=== PATIENT | male | born 1995 | race Hispanic/Latino ===

== ENCOUNTER 2019-09-10 20:46 | Emergency (ER) | payer OTHER ==
[2019-09-10] MEDS ORDERED: IPRATROPIUM BROM 0.5MG/2.5ML ONE (22:47)
[2019-09-10] MEDS ORDERED: BENZONATATE 100 MG CAP PO ONE (22:47)
[2019-09-10] MEDS ORDERED: ALBUTEROL 2.5 MG/3 ML NEB SOL ONE (22:47)
[2019-09-10] MEDS ORDERED: NA CHLORIDE 0.9% 1,000 ML ONE (23:14)
[2019-09-10 23:44] LABS: Absolute Lymphocytes (CBC) 4.3 K/uL (0.7-4.9); Basophils % 0.8 % (0-1.3); Hematocrit 40.9 % (39.6-49.0); Lymphocytes % 24.4 % (15.3-44.8); MPV 8.1 fL (7.6-11.3); RBC Red Blood Cell Count 4.69 M/uL (4.33-5.43)
--- NOTE | 2019-09-11 02:20 | ER ---
Nurse's Notes [facility] Name: Arpan Aguila Jr Age: 24 yrs Sex: Male : 1995 Arrival Date: 09/10/2019 Time: 21:00 Bed 16 Private MD: Diagnosis: Pneumonia due to other specified bacteria-left lung Presentation: 09/10 21:08 Presenting complaint: Patient states: Cough and SOB X2 weeks. pt finished predinsone ak1 and unknown antibiotics. pt started lisinopril a month [employer]. Transition of care: patient was not received from another setting of care. Onset of symptoms is unknown. Risk Assessment: Do you want to hurt yourself or someone else? Patient reports no desire to harm self or others. Initial Sepsis Screen: Does the patient meet any 2 criteria? No. Patient's initial sepsis screen is negative. Does the patient have a suspected source of infection? No. Patient's initial sepsis screen is negative. Care prior to arrival: None. 21:08 Method Of Arrival: Ambulatory ak1 21:08 Acuity: KVNG 3 ak1 Triage Assessment: 21:13 General: Appears uncomfortable. ak1 21:37 Respiratory: Reports shortness of breath cough that is Onset: The symptoms/episode wh began/occurred suddenly, the patient has mild shortness of breath. Historical: - Allergies: 21:13 No Known Allergies; ak1 - Home Meds: 21:13 lisinopril 10 mg Oral tab 1 tab once daily [Active]; ak1 - PMHx: 21:13 Hypertension; ak1 - PSHx: 21:13 None; ak1 - Immunization history:: Flu vaccine is up to date. - Social history:: Smoking status: Patient/guardian denies using tobacco. - Ebola Screening: : No symptoms or risks identified at this time. Screenin:36 Abuse screen: Denies threats or abuse. Denies injuries from another. Nutritional wh screening: No deficits noted. Tuberculosis screening: No symptoms or risk factors identified. Fall Risk None identified. Assessment: 21:35 General: Appears in no apparent distress. Behavior is calm, cooperative, appropriate wh for age. Pain: Denies pain. Neuro: Level of Consciousness is awake, alert, obeys commands. Cardiovascular: Heart tones S1 S2 Rhythm is regular. Respiratory: Airway is patent Respiratory effort is even, unlabored, Breath sounds are clear bilaterally. GI: Abdomen is round non-distended. : No signs and/or symptoms were reported regarding the genitourinary system. EENT: No signs and/or symptoms were reported regarding the EENT system. Derm: Skin is intact, is healthy with good turgor, Skin is pink, warm \T\ dry. normal. Musculoskeletal: Circulation, motion, and sensation intact. 22:00 Reassessment: Patient appears in no apparent distress at this time. No changes from fu previously documented assessment. Patient and/or family updated on plan of care and expected duration. Pain level reassessed. Patient is alert, oriented x 3, equal unlabored respirations, skin warm/dry/pink. Patient denies pain at this time. 23:00 Reassessment: Patient appears in no apparent distress at this time. No changes from fu previously documented assessment. Patient and/or family updated on plan of care and expected duration. Pain level reassessed. Patient is alert, oriented x 3, equal unlabored respirations, skin warm/dry/pink. Patient denies pain at this time. 09/11 00:35 Reassessment: Patient appears in no apparent distress at this time. No changes from fu previously documented assessment. Patient and/or family updated on plan of care and expected duration. Pain level reassessed. Patient is alert, oriented x 3, equal unlabored respirations, skin warm/dry/pink. Patient denies pain at this time. 01:08 Reassessment: Patient appears in no apparent distress at this time. No changes from fu previously documented assessment. Patient and/or family updated on plan of care and expected duration. Pain level reassessed. Patient is alert, oriented x 3, equal unlabored respirations, skin warm/dry/pink. Patient denies pain at this time. Vital Signs: 09/10 21:13 BP 174 / 117; Pulse 110; Resp 20; Temp 99.7; Pulse Ox 98% on R/A; Weight 158.76 kg (R); ak1 Height 5 ft. 7 in. (170.18 cm) (R); Pain 2/10; 21:36 BP 149 / 95; Pulse 108; Resp 18; Pulse Ox 96% on R/A; wh 22:45 BP 118 / 65; Pulse 98; Resp 18; Pulse Ox 96% ; Pain 0/10; fu 10/22 00:45 BP 138 / 78; Pulse 91; Resp 18; Pulse Ox 96% on R/A; Pain 0/10; fu 09/10 21:13 Body Mass Index 54.82 (158.76 kg, 170.18 cm) ak1 ED Course: 09/10 21:00 Patient arrived in ED. es 21:11 Triage completed. ak1 21:13 Arm band placed on Patient placed in an exam room. ak1 21:14 Hector Neal is Primary Nurse. wh 21:37 Patient has correct armband on for positive identification. Bed in low position. Call wh light in reach. Side rails up X 1. Pulse ox on. NIBP on. 21:41 Ben Cantu PA is PHCP. cp 21:41 Ben Rae MD is Attending Physician. cp 21:47 Primary Nurse role handed off by Hector Neal fu 21:47 Attila Bain, JOSEPHINE is Primary Nurse. fu 22:23 XRAY Chest Pa And Lat (2 Views) In Process Unspecified. EDMS 23:30 Inserted saline lock: 20 gauge in right antecubital area, using aseptic technique. oe Blood collected. 23:58 Inserted saline lock: 20 gauge in right antecubital area, using aseptic technique. oe 09/11 02:00 No provider procedures requiring assistance completed. fu 02:50 IV discontinued, bleeding controlled, Pressure dressing applied. fu Administered Medications: 09/10 22:54 Drug: AtroVENT Aerosol 0.5 mg Route: Inhalation; fu 09/11 00:00 Follow up: Response: No adverse reaction fu 09/10 22:54 Drug: Tessalon Perle 200 mg Route: PO; fu 09/11 00:00 Follow up: Response: No adverse reaction fu 09/10 22:55 Drug: Albuterol 2.5 mg Route: Inhalation; fu 09/11 00:00 Follow up: Response: No adverse reaction fu 09/10 23:18 Drug: NS 0.9% 1000 ml Route: IV; Rate: 1 bolus; Site: right antecubital; fu 09/11 02:44 Drug: LevaQUIN 750 mg Route: PO; fu Outcome: 02:19 Discharge ordered by . cp 02:54 Patient left the ED. fu 02:54 Discharged to home ambulatory. fu 02:54 Condition: improved 02:54 Discharge instructions given to patient, Instructed on discharge instructions, Demonstrated understanding of instructions, Prescriptions given X 3. Signatures: Dispatcher [employer] Mary Ann Huizar Amber RN RN ak1 Ben Cantu PA PA cp Espinosa, Orlando oe Habalo, Winsy wh Umadhay, Felix, RN RN fu Corrections: (The following items were deleted from the chart) 00:02 09/10 23:58 Inserted saline lock: 20 gauge in right antecubital area, using aseptic oe technique. oe
--- NOTE | 2019-09-11 02:20 | EDPHYS ---
Physician Documentation [facility] Name: Arpan Aguila Jr Age: 24 yrs Sex: Male : 1995 Arrival Date: 09/10/2019 Time: 21:00 Bed 16 Private MD: ED Physician Ben Rae HPI: 09/10 22:10 This 24 yrs old Male presents to ER via Ambulatory with complaints of Cough, cp Breathing Difficulty, Fever. 22:10 The patient or guardian reports cough, described as moderate. Onset: The cp symptoms/episode began/occurred 3 week(s) ago. Severity of symptoms: in the emergency department the symptoms are unchanged, despite home interventions. Associated signs and symptoms: Pertinent positives: fever, Pertinent negatives: diarrhea, vomiting. Patient reports recently finishing oral antibiotic and prednisone for cough. Was started on oral lisinopril for high blood pressure about 1 month ago prior to cough starting. Historical: - Allergies: 21:13 No Known Allergies; ak1 - Home Meds: 21:13 lisinopril 10 mg Oral tab 1 tab once daily [Active]; ak1 - PMHx: 21:13 Hypertension; ak1 - PSHx: 21:13 None; ak1 - Immunization history:: Flu vaccine is up to date. - Social history:: Smoking status: Patient/guardian denies using tobacco. - Ebola Screening: : No symptoms or risks identified at this time. ROS: 22:20 Constitutional: Negative for body aches, fever, poor PO intake. cp 22:20 Eyes: Negative for injury, pain, redness, and discharge. cp 22:20 ENT: Negative for drainage from ear(s), ear pain, sore throat, difficulty swallowing, difficulty handling secretions. 22:20 Cardiovascular: Positive for chest pain, with cough, Negative for edema, palpitations. 22:20 Respiratory: Positive for cough, "sounds productive", shortness of breath, Negative for wheezing. 22:20 Abdomen/GI: Negative for abdominal pain, nausea, vomiting, and diarrhea. 22:20 Back: Negative for radiated pain. 22:20 Skin: Negative for cellulitis, rash. 22:20 Neuro: Negative for altered mental status, headache, weakness. 22:20 All other systems are negative. Exam: 22:25 Constitutional: The patient appears in no acute distress, alert, awake, cp non-diaphoretic, non-toxic, well developed, well nourished, obese. 22:25 Head/Face: Normocephalic, atraumatic. cp 22:25 Eyes: Periorbital structures: appear normal, Conjunctiva: normal, no exudate, no injection, Sclera: no appreciated abnormality, Lids and lashes: appear normal, bilaterally. 22:25 ENT: External ear(s): are unremarkable, Ear canal(s): are normal, clear, TM's: bulging, is not appreciated, bilaterally, dullness, bilaterally, erythema, is not appreciated, bilaterally, Nose: is normal, Mouth: Lips: moist, Oral mucosa: pink and intact, moist, Posterior pharynx: is normal, airway is patent, no erythema, no exudate. 22:25 Neck: ROM/movement: is normal, is supple, without pain, no range of motions limitations, no meningismus, no nuchal rigidity, Lymph nodes: no appreciated lymphadenopathy. 22:25 Chest/axilla: Inspection: normal, Palpation: is normal, no crepitus, no tenderness. 22:25 Cardiovascular: Rate: tachycardic, Rhythm: regular. 22:25 Respiratory: the patient does not display signs of respiratory distress, Respirations: labored breathing, is not present, intercostal retractions, are absent, splinting, is not noted, tachypnea, is not appreciated, Breath sounds: decreased breath sounds, are not appreciated, rhonchi, that are mild, are heard in the left posterior upper lobe and left posterior lower lobe, stridor, is not appreciated, wheezing: is not appreciated. 22:25 Abdomen/GI: Inspection: obese Bowel sounds: active, all quadrants, Palpation: abdomen is soft and non-tender, in all quadrants. 22:25 Skin: no rash present. 22:25 Neuro: Orientation: to person, place \\T\\ time. Mentation: is normal, Cerebellar function: is grossly normal, Motor: moves all fours, strength is normal, Sensation: is normal. 22:38 ECG was reviewed by the Attending Physician. cp Vital Signs: 21:13 BP 174 / 117; Pulse 110; Resp 20; Temp 99.7; Pulse Ox 98% on R/A; Weight 158.76 kg (R); ak1 Height 5 ft. 7 in. (170.18 cm) (R); Pain 2/10; 21:36 BP 149 / 95; Pulse 108; Resp 18; Pulse Ox 96% on R/A; wh 22:45 BP 118 / 65; Pulse 98; Resp 18; Pulse Ox 96% ; Pain 0/10; fu 09/11 00:45 BP 138 / 78; Pulse 91; Resp 18; Pulse Ox 96% on R/A; Pain 0/10; fu 09/10 21:13 Body Mass Index 54.82 (158.76 kg, 170.18 cm) ak1 MDM: 09/10 21:50 Patient medically screened. cp 23:00 Differential Diagnosis: Bronchitis Influenza Otitis Media Viral Syndrome Pneumonia cp Other pooja inhibitor induced cough. 09/11 02:18 Data reviewed: vital signs, nurses notes. cp 02:18 Test interpretation: by ED physician or midlevel provider: ECG, plain radiologic cp studies, chest xray shows left lung pneumonia. Counseling: I had a detailed discussion with the patient and/or guardian regarding: the historical points, exam findings, and any diagnostic results supporting the discharge/admit diagnosis, lab results, radiology results, the need for outpatient follow up, a family practitioner, to return to the emergency department if symptoms worsen or persist or if there are any questions or concerns that arise at home. Response to treatment: the patient's symptoms have markedly improved after treatment, and as a result, I will discharge patient. ED course: VSS. Cough improved after treatment. Patient to start oral Levaquin and will discharge to home for continued monitoring. 09/10 21:13 Order name: Flu; Complete Time: 00:23 ak1 09/10 22:47 Order name: Procalcitonin; Complete Time: 01:11 cp 09/10 22:47 Order name: Lactate; Complete Time: 00:23 cp 09/10 22:47 Order name: CBC with Diff; Complete Time: 00:23 cp 09/11 00:24 Interpretation: Normal except: WBC 17.8; PLT 429; NEUT A 12.1. cp 09/10 22:47 Order name: BMP; Complete Time: 00:23 cp 09/11 00:24 Interpretation: Normal except: GFR 86. cp 09/10 22:01 Order name: XRAY Chest Pa And Lat (2 Views); Complete Time: 22:48 cp 09/11 22:49 Interpretation: Report reviewed. cp 09/10 22:01 Order name: EKG; Complete Time: 22:01 cp 09/10 22:59 Order name: BNP; Complete Time: 02:16 cp 09/10 22:01 Order name: EKG - Nurse/Tech; Complete Time: 01:05 cp 09/10 22:47 Order name: IV; Complete Time: 01:00 cp EC/21 22:38 Rate is 102 beats/min. Rhythm is regular. [place] interval is normal. QRS interval is cp normal. QT interval is normal. Interpreted by me. Reviewed by me. Administered Medications: 22:54 Drug: AtroVENT Aerosol 0.5 mg Route: Inhalation; fu 09/11 00:00 Follow up: Response: No adverse reaction fu 09/10 22:54 Drug: Tessalon Perle 200 mg Route: PO; fu 09/11 00:00 Follow up: Response: No adverse reaction fu 09/10 22:55 Drug: Albuterol 2.5 mg Route: Inhalation; fu 09/11 00:00 Follow up: Response: No adverse reaction 09/10 23:18 Drug: NS 0.9% 1000 ml Route: IV; Rate: 1 bolus; Site: right antecubital; fu 09/11 02:44 Drug: LevaQUIN 750 mg Route: PO; Disposition: 07:36 Co-signature as Attending Physician, Ben Rae MD I agree with the assessment and courtney plan of care. Disposition: 09/11/19 02:19 Discharged to Home. Impression: Pneumonia due to other specified bacteria - left lung. - Condition is Stable. - Discharge Instructions: Community-Acquired Pneumonia, Adult. - Prescriptions for Levaquin 750 mg Oral Tablet - take 1 tablet by ORAL route once daily for 10 days start morning of 09-12-2019; 9 tablet. Tessalon Perles 100 mg Oral Capsule - take 2 capsule by ORAL route every 8 hours As needed; 20 capsule. Albuterol Sulfate 90 mcg/actuation - inhale 1-2 puff by INHALATION route every 4-6 hours; 1 Inhaler. - Medication Reconciliation Form, Thank You Letter, Antibiotic Education, Prescription Opioid Use, Work release form form. - Follow up: Private Physician; When: 1 - 2 days; Reason: Recheck today's complaints. - Problem is new. - Symptoms have improved. Signatures: Dispatcher [employer] EDMS Ben Rae MD MD cha Krenek, Amber RN RN ak1 Ben Cantu PA PA cp Umadhay, Felix, RN RN fu Corrections: (The following items were deleted from the chart) 00:24 00:24 Normal except: WBC 17.8; PLT 429. cp cp 02:54 02:19 09/11/2019 02:19 Discharged to Home. Impression: Pneumonia due to other specified fu bacteria - left lung. Condition is Stable. Forms are Medication Reconciliation Form, Thank You Letter, Antibiotic Education, Prescription Opioid Use. Follow up: Private Physician; When: 1 - 2 days; Reason: Recheck today's complaints. Problem is new. Symptoms have improved. cp
[2019-09-11] MEDS ORDERED: levoFLOXacin 750 MG TAB ONE (02:35)
[2019-09-11 02:59] VITALS: TEMP 99.7
[2019-09-11 03:01] VITALS: O2SAT 96
[2019-09-11 03:04] VITALS: BP 138/78
--- NOTE | 2019-09-11 08:27 | RAD REPORT ---
EXAM DESCRIPTION: RAD - Chest Pa And Lat (2 Views) - 09/10/2019 10:25 pm CLINICAL HISTORY: COUGH, shortness of breath COMPARISON: None. TECHNIQUE: PA and lateral views of the chest were obtained. FINDINGS: The lungs are underinflated. Moderately large area of interstitial and alveolar opacifica tion present in the left upper lobe. Right lung field is clear. Heart size is normal and central vasc ulature is within normal limits. No pleural effusion or pneumothorax seen. No acute bony finding no prema. No aortic abnormality. Lateral view is degraded by motion. IMPRESSION: Moderately large left upper lobe pneumonia.
--- NOTE | 2019-09-11 12:12 | EKG ---
Test Date: 2019-09-10 Test Time: 22:30:34 [employer]visor [employer]: [place] MEASUREMENT RESULTS: Intervals: Rate: 102 KS: 162 QRSD: 94 QT: 322 QTc: 419 Wolf: P: 14 KS: 162 QRS: 21 T: 42 INTERPRETIVE STATEMENTS: Sinus tachycardia Otherwise normal ECG No previous ECG available for comparison Electronically Signed On 09-11-19 12:09:09 CDT by Steve Leiva
== END 2019-09-11 02:54 | disposition home or self-care (01) ==
LOC: ER 20:46
DX: J15.8 Pneumonia due to other specified bacteria (principal); I10 Essential (primary) hypertension
CPT/HCPCS: 93005; 85025; 80048; 36415; 83605; 84145; 83880; 87804 ×2; 71046; 99284; J7030; 87040

== ENCOUNTER 2021-11-28 18:35 | Emergency (ER) | payer OTHER ==
--- OUTSIDE RECORDS SUMMARY | 2021-11-28 18:38 | XMS REPORT | Continuity of Care Document ---
:1995 Author Organization [facility] t Address [facility] [place] [address] Care Team Providers Name Role Phone Ghulam Noe Attending Clinician Unavailable Pam Garcia Attending Clinician Pam BEAN Attending Clinician Unavailable Cyrus BURTON, D Attending Clinician Unavailable Attending Clinician Unavailable Shanelle Noe Admitting Clinician Unavailable KNOW Admitting Clinician Unavailable Payers Payer Name Policy Type Policy Number Effective Date Expiration Date S ource Problems Condition Condition Condition Status Onset Resolution Last Treating Co mments Source Name Details Category Date Date Treatment Clinician Date No known No known Disease Unive rs active active ity of problems problems [facility] Allergies, Adverse Reactions, Alerts Allergy Allergy Status Severity Reaction(s) Onset Inactive Treating Comm ents Source Name Type Date Date Clinician No Known DA Active U 2020-11 [facility]ie 2- [facility] 00:00: [address] NO KNOWN Drug Active Univers ALLERGIE Class ity of [facility] Social History Social Habit Start Date Stop Date Quantity Comments Source Exposure to Not sure [facility] SARS-CoV-2 (event) Medica l Branch Sex Assigned At [birth year] [facility] 00:00:00 00:00:00 Medical Branch Smoking Status Start Date Stop Date Source Unknown if ever smoked [facility] [place] [facility] Medications Ordered Filled Start Stop Current Ordering Indication Dosage Frequency Signature Comments Components Source Medication Medication Date Date Medication? Clinician (SIG) Name Name traMADoL 2020- No [facility] Oral, ONCE ity of tablet 50 03:00: 01:52 NOW, 1 [place] mg 00 :00 dose, [facility] 04/28/21 at [place] 2200, Routine lisinopriL 2020- No 10mg 10 mg, [facility] ers (PRINIVIL,Z 04-29 Oral, ONCE i ty of ESTRIL) 03:00: 01:52 NOW, 1 [place] tablet 10 00 :00 dose, [facility] Medic al mg 04/28/21 at [place] 2200, Routine cloNIDine 2020- No .1mg 0.1 mg, [facility] ers (CATAPRES) 04-29 Oral, ity of tablet 0.1 03:00: 01:52 ONCE, 1 [place] as mg 00 :00 dose, [facility] 04/28/21 at [place] 2200, STAT lisinopriL Yes [id number] 10mg Take 1 U nivers 10 mg 608 tablet by ity of tablet 00:00: mouth at [place] 00 bedtime. Medical Branch ibuprofen Yes [id number] 600mg Take 1 Univers 600 mg 6-08 [id number] tablet by ity of tablet 00:00: mouth [place] 00 every 6 Medical (six) Branch hours as needed for Pain (scale 4-6). benzonatate Yes [id number] 100mg Take 1 Univers 100 mg 2-02 capsule by ity of capsule 00:00: mouth 3 [place] 00 (three) Medical times Branch daily as needed for Cough. chlorphenir Yes [id number] 4mg Take 1 Univers amine 4 mg 2-02 tablet by ity of tablet 00:00: mouth [place] 00 every 6 Medical (six) Branch hours as needed for Allergies or Runny nose. multivitami Yes [id number] 1{capsu Take 1 Univers n capsule 2-02 le} capsule by ity of 00:00: mouth [place] 00 daily. Medical Branch calcium-mag Yes [id number] Take as Univers nesium-zinc 2-02 directed ity of 333-133-8.3 00:00: for daily [place] mg Tab 00 dose. Medical Branch benzonatate Yes [id number] 100mg Take 1 Univers 100 mg 2-02 capsule by ity of capsule 00:00: mouth 3 [place] 00 (three) Medical times Branch daily as needed for Cough. chlorphenir Yes [id number] 4mg Take 1 Univers amine 4 mg 2-02 tablet by ity of tablet 00:00: mouth [place] 00 every 6 Medical (six) Branch hours as needed for Allergies or Runny nose. multivitami Yes [id number] 1{capsu Take 1 Univers n capsule 2-02 le} capsule by ity of 00:00: mouth [place] 00 daily. Medical Branch calcium-mag Yes [id number] Take as Univers nesium-zinc 2-02 directed ity of 333-133-8.3 00:00: for daily [place] mg Tab 00 dose. Medical Branch vitamin 2020- No [id number] 1{tbl} Take 1 Univers D3-folic 2-02 03-05 tablet by ity o f acid 5,000 00:00: 05:59 mouth [place] unit- 1 mg 00 :00 daily for Medi penelope Tab 30 days. Branch Vital Signs Vital Name Observation Time Observation Value Comments Source Systolic blood 2021-04-29 02:50:00 148 mm[Hg] [facility] Diastolic blood 2021-04-29 02:50:00 88 mm[Hg] [facility] 2021-04-29 02:50:00 89 /min [facility] Body temperature 2021-04-29 02:50:00 36.67 [facility] Res[facility] rate 2021-04-29 02:50:00 21 /min [facility] Oxygen saturation in 2021-04-29 02:50:00 97 /min [facility] Arterial blood by [facility] Pulse oximetry Branch Body height 2021-04-29 01:31:00 170.2 cm [facility] Body weight 2021-04-29 01:31:00 167.831 kg [facility] BMI 2021-04-29 01:31:00 57.95 kg/m2 [facility] Procedures Procedure Date / Time Performed Performing Clinician Renan beltran [id number] 2021-11-11 00:00:00 DAISY [facility] [id number] 2021-11-11 00:00:00 DAISY [facility] [id number] 2021-11-11 00:00:00 DAISY [facility] [id number] 2021-11-11 00:00:00 DAISY [facility] XR ANKLE 3+ VW RIGHT 2021-04-29 02:25:29 Lizeth Bean [facility] XR FOOT 3+ VW RIGHT 2021-04-29 02:25:29 Lizeth Bean [facility] NOTICE OF PRIVACY 2021-04-29 01:29:13 Doctor Unassigned, No Univ [facility] PRACTICES Name Medical Branch CONSENT/REFUSAL FOR 2021-04-29 01:27:21 Doctor Unassigned, No Un [facility] DIAGNOSIS AND Name [facility] Branch TREATMENT Encounters Start End Encounter Admission Attending Care Care Encounter Source Date/Time Date/Time Type Type Clinicians Facility Department ID 2021-05-01 Inpatient Ghulam Williamson [facility] [id number] [facility] 07:30:00 [id number] [place] [facility] 2021-03-13 Inpatient Ghulam Williamson [facility] [id number] [facility] 07:30:00 [id number] [place] [facility] 2021-01-23 Inpatient Ghulam Williamson [facility] [id number] [facility] 07:30:00 [id number] [facility] 2021-01-02 Inpatient Ghulam Noe [facility] [id number] [facility] 07:30:00 [id number] [place] [facility] 2021-11-11 2021-11-12 Inpatient Ghulam Williamson [facility] MEDI.01 BP22 [id number] [facility] 03:08:00 13:34:00 [id number] [facility] 2021-11-11 2021-11-12 Inpatient Ghulam Williamson [facility].01 BP00 [id number] [facility] 03:08:00 13:34:00 47 [facility] 2021-04-28 2021-04-28 Emergency [facility] [id number] Univers 20:32:00 21:56:00 Lizeth Bustamante [id number] i ty [facility] [id number] [facility] [id number] [place] [address] Branch 2021-04-28 2021-04-28 Emergency X [facility] ERT [id number] Univers 20:32:00 20:32:00 LIZETH ro[facility] 2020-12-24 2020-12-24 Telephone MIR Bridges [id number] Univers 00:00:00 00:00:00 Sonia FAIR [id number] i ty [facility] [id number] [facility] [id number] [place] [address] Branch 2020-12-23 2020-12-23 Emergency X [facility] ERT [id number] Univers 12:36:00 12:36:00 JOSE GUADALUPE robin [facility] Results Test Description Test Time Test Comments Results Result Comments Source SURGICAL 2021-11-17 09:45:00 Test Item Value Reference Range Interpretation Anamaria mclaughlin SURGICAL RUN DATE: (test 11/17/21 [facility] - LAB PAGE 1 RUN TIME: 944 code = Specimen Inquiry RUN USER: INTERFACE SR) PATIENT: MIGUEL NIELSEN JR LOC: [id number] POD B U #: [id number] AGE/SX: 26/ M ROOM: [facility]71 RE11/11/21REG DR: Ghulam Noe MD : [birth year] BED: 1 DIS: 11/12/21 STATUS: DIS IN TLOC: SPEC #: [id number] RECD: STATUS: SOU REQ #: [id number] ANANT: 11/11/[address] [facility] [address]: Ghulam Noe MD ENTERED: 11/11/21 SP TYPE: SURGICAL OTHR DR: No Primary or Family Physician Terra Khalil MDORDERED: 91689/2, 74728/4, AN ATOMIC SPEC HISTOLOGY: TIS KEISHA ID BLK PCS HETAL LEV / PROCEDURE DISPOSITION ____ ___ ___ ___ ___ LIVER, NOS A 1 2 STOMNT B 1 1 TISSUES: A. LIVER, NOS - Liver Bx B. STOMACH SUBTOTAL / TOTAL RESECTION NOT TUMOR/SLEEVE - Partial Stomach FINAL DIAGNO SIS A. LIVER, WEDGE BIOPSY: - Mild steatosis ( 5-10%). - Mild nonspecific portal inflammat ion. - No significant fibrosis. Comment: The biopsy shows mild macrovesicular steatosis ( 5 -10%) with no balloonedhepatocytes. Mild nonspecific portal mononuclear inflammation without interfa ce activityand no significant lobular inflammation is present. A special stain for iron is negative. APAS with diastase stain is negative for cytoplasmic inclusions, a reticulin stain does notdemonstrate ab normal thickening of the cell plates, and a trichrome stain is negative forsignificant fibrosis (sta ge 0 of 4). Diagnostifc features of steatohepatitis are not identified. B. STOMACH, PARTIAL, SLEEVE GAS TRECTOMY: - No histopathologic alteration. - Negative for organisms morphologically suggestive o f Helicobacter pylori on routine stains. GROSS DESCRIPTION A. Received in formalin labeled with patient's name and date of , designated specimenA "liver biopsy". It consists of a single pal e soft friable wedge shaped liver biopsyspecimen that measures 2 x 1.2 x 1.0 cm. The specimen is trisect ed and submitted entirelyin cassette A. B. Received in formalin labeled with patient's name and date of b irth, designated specimenB "partial stomach". It consists of a portion of stomach that measures 20 cm in lengthwith a diameter of up to 4.4 cm. The serosa is pink and smooth. There is a staple liningrunn ing longitudinally. The specimen is opened, longitudinally, down the staple lining toreveal a significan t amount of pink hemorrhagic fluid. The mucosal surface displays CONTINUED ON NEXT PAGE RUN DATE: 11/17/21 [facility] - LAB PAGE 2 RUN TIME: 944 Specimen Inquiry RUN USER: INTERFACE SPEC #: [id number] PATIENT: MIGUEL NIELSEN JR #[id number] (Continued) GROSS DESCRIPTION (Continued) regular pink rugal folds with an area of discoloration. The mural thickness measures anaverage of 0.2 cm. The specimen is submitted, representatively, in cassette B. RAMAN/albin Technical component performed at [facility], [facility], [address] MICROSCOPIC DESCRIPTION PERFORMED AND INCORPORATED INTO THE FINAL DIAGNOSIS. CLINICAL INFORMATION Morbid Obesity Signed SIGNATURE ON FILE Raf Garnica 11/17/21 0945 E ND OF REPORT BASIC METABOLIC [id number] 04:18:00 Test Item Value Reference Range Interpretation Comments SODIUM (test code 133 mmol/L 136-145 L Please not e: New = NA) Reference Range Dec 2020 POTASSIUM (test 4.0 mmol/L 3.5-5.1 N code = K) CHLORIDE (test 99 mmol/L 98-107 N Please note: New code = CL) Reference Range Dec 2020 CARBON DIOXIDE 23 mmol/L 20-31 N Please note: New (test code = CO2) Reference Range Dec 2020 GLUCOSE (test code 119 mg/dL 74-106 H Please no te: New = GLU) Reference Range Dec 2020 BLOOD UREA 7 mg/dL 9-23 L Please note: Ne w NITROGEN (test Reference Ran ge Feb code = BUN) 2020 GLOMERULAR >=60 max >60 Units are FILTRATION RATE estimate mL/min mL/min/1. 73m2 The (test code = GFR) estimated glomerular filtration rate is computed usingpatient ra ce, age (>18), sex, and serum creatinin e. If anyof the neede d data elements a re missing the Laboratory juan ot compute an estimation of t he glomerular filtration rate . CREATININE (test 0.90 mg/dL 0.70-1.30 N Please note : New code = CREAT) Reference Rang e Dec 2020 CALCIUM (test code 8.2 mg/dL 8.7-10.4 L Please no te: New = CA) Reference Range Dec 2020 [id number] 04:18:00 Test Item Value Reference Range Interpretation Comments PHOSPHOROUS (test code 3.4 mg/dL 2.4-5.1 N Pleas e note: New = PHOS) Reference Range Dec 2020 [id number] 04:18:00 Test Item Value Reference Range Interpretation Comments MAGNESIUM (test code = 1.7 mg/dL 1.6-2.6 N Pleas e note: New MAG) Reference Range Dec 2020 CBC W/AUTO [id number] 04:00:00 Test Item Value Reference Range Interpretation Comments WHITE BLOOD CELL (test code = 12.3 x10 3/uL 4.8-10.8 H WBC) RED BLOOD CELL (test code = 4.83 x10 6/uL 4.70-6.10 N RBC) HEMOGLOBIN (test code = HGB) 14.2 g/dL 14.0-18.0 N HEMATOCRIT (test code = HCT) 41.4 % 42.0-52.0 L MEAN CELL VOLUME (test code = 85.7 fL 80.0-94.0 N MCV) MEAN CELL HGB (test code = MCH) 29.4 pg 27-31 N MEAN CELL HGB CONCENTRATION 34.3 G/DL 33-36.5 N (test code = MCHC) RED CELL DISTRIBUTION WIDTH 12.6 % 12.9-16.9 L (test code = RDW) PLATELET COUNT (test code = 303 x10 3/uL 150-440 N PLT) MEAN PLATELET VOLUME (test code 10.8 fL 8.9-12.4 N = MPV) NEUTROPHIL % (test code = NT%) 74.4 % 42.2-75.2 N LYMPHOCYTE % (test code = LY%) 17.2 % 20.5-51.1 L MONOCYTE % (test code = MO%) 7.7 % 1.7-9.3 N EOSINOPHIL % (test code = EO%) 0.2 % 0.0-7.0 N BASOPHIL % (test code = BA%) 0.3 % 0-2.5 N NEUTROPHIL # (test code = NT#) 9.12 x10 3/uL 1.80-7.70 H LYMPHOCYTE # (test code = LY#) 2.11 x10 3/uL 1.00-4.80 N MONOCYTE # (test code = MO#) 0.95 x10 3/uL 0.00-0.80 H EOSINOPHIL # (test code = EO#) 0.02 x10 3/uL 0.00-0.45 N BASOPHIL # (test code = BA#) 0.04 x10 3/uL 0.0-0.20 N COMPREHENSIVE METABOLIC [id number] 13:44:00 Test Item Value Reference Range Interpretation Comments SODIUM (test code = 137 mmol/L 136-145 N Please n ote: New NA) Reference Range Dec 2020 POTASSIUM (test 4.2 mmol/L 3.5-5.1 N code = K) CHLORIDE (test code 100 mmol/L 98-107 N Please n ote: New = CL) Reference Range Dec 2020 CARBON DIOXIDE 26 mmol/L 20-31 N Please note: New (test code = CO2) Reference Range Dec 2020 GLUCOSE (test code 77 mg/dL 74-106 N Please no te: New = GLU) Reference Range Dec 2020 BLOOD UREA NITROGEN 11 mg/dL 9-23 N Please n ote: New (test code = BUN) Reference Range Dec 2020 GLOMERULAR >=60 max >60 Units are FILTRATION RATE estimate mL/min mL/min/1. 73m2 The (test code = GFR) estimated glomerular filtration rate is computed usingpatient ra ce, age (>18), sex, and serum creatinin e. If anyof the ne eded data elements a re missing the Laboratory juan ot compute an estimation of t he glomerular filtration rate . CREATININE (test 1.00 mg/dL 0.70-1.30 N Please note : New code = CREAT) Reference Rang e Dec 2020 TOTAL PROTEIN (test 7.6 g/dL 5.7-8.2 N Please n ote: New code = PROT) Reference Range Dec 2020 ALBUMIN (test code 5.1 g/dL 3.2-4.8 H Please no te: New = ALB) Reference Range Dec 2020 CALCIUM (test code 9.7 mg/dL 8.7-10.4 N Please no te: New = CA) Reference Range Dec 2020 BILIRUBIN TOTAL 0.8 mg/dL 0.3-1.2 N Please note: New (test code = BILT) Reference Range Dec 2020 SGOT/AST (test code 53 U/L <34 H Please n ote: New = AST) Reference Range Dec 2020 SGPT/ALT (test code 141 U/L 10-49 H Please n ote: New = ALT) Reference Range Dec 2020 ALKALINE 59 U/L 46-116 N Please note: Ne w PHOSPHATASE (test Reference Range Feb code = ALKP) 2020 PROTHROMBIN [id number] 13:32:00 Test Item Value Reference Range Interpretation Comments PROTHROMBIN TIME 14.1 SECONDS 10.3-12.9 H PATIENT (test code = PTP) INTERNATIONAL 1.23 INR UNIT 0.9-1.11 H The INR is us eful only NORMAL RATIO (test for monit oring code = INR) anticoagulant therapy.It may be unreliable in t he initial phase o f antigoagulation and in unstable patien ts. Indication for Anticoagulation Recommend ed INR 1. Prevention o f venous thomboembolism 2.0-3.0in high -risk patients; treat ment of venousthrombosi s and pulmonary embol ism aftera course o f heparin; preven tion of systemicembolis m in a variety of cond itions, including atria l fibrillation an d prothetic tissu e heart valves, 2. Pros thetic mechanical hear t valves; 2.5-3.5recurren t systemic emboli sm. THROMBOPLASTIN TIME [id number] 13:32:00 Test Item Value Reference Range Interpretation Comments THROMBOPLASTIN TIME 37.5 SECONDS 23.8-34.8 H INTERPRE TATIVE PARTIAL (test code = DATA:Th erapeutic PTT) range: Unfractionated heparin:55 - 80 seconds Argatroban:1.5 to 3 times the basel ine PTT CBC W/AUTO [id number] 13:20:00 Test Item Value Reference Range Interpretation Comments WHITE BLOOD CELL (test code = 8.9 x10 3/uL 4.8-10.8 N WBC) RED BLOOD CELL (test code = 5.36 x10 6/uL 4.70-6.10 N RBC) HEMOGLOBIN (test code = HGB) 15.5 g/dL 14.0-18.0 N HEMATOCRIT (test code = HCT) 45.7 % 42.0-52.0 N MEAN CELL VOLUME (test code = 85.3 fL 80.0-94.0 N MCV) MEAN CELL HGB (test code = MCH) 28.9 pg 27-31 N MEAN CELL HGB CONCENTRATION 33.9 G/DL 33-36.5 N (test code = MCHC) RED CELL DISTRIBUTION WIDTH 12.8 % 12.9-16.9 L (test code = RDW) PLATELET COUNT (test code = 335 x10 3/uL 150-440 N PLT) MEAN PLATELET VOLUME (test code 10.6 fL 8.9-12.4 N = MPV) NEUTROPHIL % (test code = NT%) 63.8 % 42.2-75.2 N LYMPHOCYTE % (test code = LY%) 26.2 % 20.5-51.1 N MONOCYTE % (test code = MO%) 7.3 % 1.7-9.3 N EOSINOPHIL % (test code = EO%) 1.7 % 0.0-7.0 N BASOPHIL % (test code = BA%) 0.8 % 0-2.5 N NEUTROPHIL # (test code = NT#) 5.66 x10 3/uL 1.80-7.70 N LYMPHOCYTE # (test code = LY#) 2.32 x10 3/uL 1.00-4.80 N MONOCYTE # (test code = MO#) 0.65 x10 3/uL 0.00-0.80 N EOSINOPHIL # (test code = EO#) 0.15 x10 3/uL 0.00-0.45 N BASOPHIL # (test code = BA#) 0.07 x10 3/uL 0.0-0.20 N
[2021-11-28 21:04] LABS: Absolute Lymphocytes (CBC) 1.4 K/uL (0.7-4.9); Hematocrit 43.3 % (39.6-49.0); Lymphocytes % 19.4 % (15.3-44.8); MPV 9.3 fL (7.6-11.3); RBC Red Blood Cell Count 5.04 M/uL (4.33-5.43)
[2021-11-28 21:20] LABS: Albumin 4.5 g/dL (3.4-5.0); Bilirubin Total 0.6 mg/dL (0.2-1.0); Potassium 3.9 mmol/L (3.5-5.1); Protein, Total 8.8 g/dL (6.4-8.2)
[2021-11-28 21:46] LABS: SARS-COV-2 RT PCR POSITIVE (NEGATIVE)
--- NOTE | 2021-11-28 21:52 | RAD REPORT ---
EXAM DESCRIPTION: RAD - Chest Single View - 11/28/2021 9:16 pm CLINICAL HISTORY: FEVER Chest pain. COMPARISON: Chest Pa And Lat (2 Views) dated 09/10/2019 FINDINGS: Portable technique limits examination quality. The lungs are grossly clear. The heart is normal in size. No displaced fractures. IMPRESSION: No acute intrathoracic process suspected.
--- NOTE | 2021-11-28 22:06 | ER ---
Nurse's Notes [facility] Name: Arpan Aguila Jr Age: 26 yrs Sex: Male : 1995 Arrival Date: 11/28/2021 Time: 18:39 Bed 11 Private MD: Diagnosis: Coronavirus infection, unspecified Presentation: 11/28 19:05 Chief complaint: Patient states: Patient reports fever, chills, cough/congestion, jg9 intermittent fevers x2 days. Patient reports having Bariatric bypass surgery and hernia repair on 11/11/21-surgeon advised him to come to ed to be evaluated. Coronavirus screen: Vaccine status: Patient reports being unvaccinated. Ebola Screen: Patient negative for fever greater than or equal to 101.5 degrees Fahrenheit, and additional compatible Ebola Virus Disease symptoms Patient denies exposure to infectious person. Patient denies travel to an Ebola-affected area in the 21 days before illness onset. Initial Sepsis Screen: Does the patient meet any 2 criteria? No. Patient's initial sepsis screen is negative. Does the patient have a suspected source of infection? No. Patient's initial sepsis screen is negative. Risk Assessment: Do you want to hurt yourself or someone else? Patient reports no desire to harm self or others. 19:05 Method Of Arrival: Ambulatory 9 19:05 Acuity: KVNG 3 j9 19:09 Onset of symptoms is unknown. jg9 Triage Assessment: 19:08 Headache History: The patient has had previous headaches and this one is similar to jg9 previous episodes. General: Appears in no apparent distress. Behavior is calm, cooperative. Pain: Pain currently is 8 out of 10 on a pain scale. Pain began 2-3 days ago. 19:09 Pain: Also complains of no other associated symptoms. Neuro: No deficits noted. jg9 Historical: - Home Meds: 19:08 lisinopril 10 mg Oral tab 1 tab once daily [Active]; jg9 - PMHx: 19:08 Hypertension; jg9 - PSHx: 19:08 bariatric gastric by pass 11/11/21; jg9 - Immunization history:: Client reports having NOT received the Covid vaccine. Pneumococcal vaccine is not up to date, Flu vaccine is not up to date. - Social history:: Smoking status: Patient denies any tobacco usage or history of. Screenin:09 Abuse screen: Denies threats or abuse. Denies injuries from another. Nutritional jg9 screening: No deficits noted. Tuberculosis screening: No symptoms or risk factors identified. Fall Risk None identified. Assessment: 20:36 General: Appears in no apparent distress. Behavior is calm, cooperative, appropriate ab2 for age. Pain: Complains of pain in generalized Pain currently is 4 out of 10 on a pain scale. Neuro: Level of Consciousness is awake, alert, obeys commands, Oriented to person, place, time, situation, Appropriate for age Instructor Painting are equal bilaterally Moves all extremities. Gait is steady, Reports headache in entire. Cardiovascular: No deficits noted. Reports None Denies chest pain, shortness of breath, Heart tones S1 S2 present Patient's skin is warm and dry. Respiratory: No deficits noted. Airway is patent Breath sounds are clear bilaterally. GI: No deficits noted. No signs and/or symptoms were reported involving the gastrointestinal system. Abdomen is round obese, Bowel sounds present X 4 quads. Abdomen is tender to palpation Guarding noted X 4 quads. Reports nausea, vomiting. : No deficits noted. No signs and/or symptoms were reported regarding the genitourinary system. EENT: No deficits noted. No signs and/or symptoms were reported regarding the EENT system. Derm: No deficits noted. No signs and/or symptoms reported regarding the dermatologic system. Musculoskeletal: No deficits noted. No signs and/or symptoms reported regarding the musculoskeletal system. 22:46 Reassessment: Patient is alert, oriented x 3, equal unlabored respirations, skin bb warm/dry/pink. pt verbalized understanding of and agrees to plan of care discharge instructions given pt ambulated with steady gait to exit accompanied by family. Vital Signs: 19:05 BP 149 / 86; Pulse 97; Resp 20 S; Temp 99.3; Pulse Ox 100% on R/A; Weight 166.47 kg; jg9 Height 5 ft. 7 in. (170.18 cm); 21:47 BP 129 / 69; Pulse 103; Resp 20; Temp 98.5(O); Pulse Ox 99% on R/A; Pain 0/10; ab2 19:05 Body Mass Index 57.48 (166.47 kg, 170.18 cm) 9 ED Course: 18:39 Patient arrived in ED. as 19:08 Triage completed. jg9 19:09 Arm band placed on left wrist. jg9 20:33 Ethan Kinsey is Primary Nurse. ab2 20:34 Quintin Anrold NP is PHCP. pm1 20:35 Bob Cleaning MD is Attending Physician. pm1 20:38 Patient has correct armband on for positive identification. Bed in low position. Side ab2 rails up X2. 20:38 No provider procedures requiring assistance completed. ab2 20:56 CMP Sent. ab2 20:56 CBC with Diff Sent. ab2 20:56 COVID-19/FLU A+B (Document "Date of Onset" if Symptomatic) Sent. ab2 20:57 Inserted saline lock: 22 gauge in left antecubital area, using aseptic technique. lt3 21:17 Chest Single View XRAY In Process Unspecified. EDMS 22:46 IV discontinued, intact, bleeding controlled, No redness/swelling at site. Pressure bb dressing applied. Administered Medications: No medications were administered Outcome: 22:06 Discharge ordered by MD. pm1 22:46 Discharged to home ambulatory, with family. bb 22:46 Condition: stable 22:46 Discharge instructions given to patient, Instructed on discharge instructions, follow up and referral plans. Demonstrated understanding of instructions, follow-up care. 22:48 Patient left the ED. bb Signatures: Dispatcher [employer] EDMS Terra Adan Brenda, RN RN bb Quintin Arnold NP AUTOMOTIVE SALES MANAGER pm1 Cass Combs lt3 Juanita Llanos RN RN jg9 Ethan Kinsey ab2
--- NOTE | 2021-11-28 22:06 | EDPHYS ---
Physician Documentation [facility] Name: Arpan Aguila Jr Age: 26 yrs Sex: Male : 1995 Arrival Date: 11/28/2021 Time: 18:39 Bed 11 Private MD: ED Physician Bob Cleaning HPI: 11/28 21:26 This 26 yrs old Male presents to ER via Ambulatory with complaints of Cough, pm1 Fever. 21:26 The patient or guardian reports cough. Onset: The symptoms/episode began/occurred 2 pm1 day(s) ago. Severity of symptoms: in the emergency department the symptoms are unchanged. Modifying factors: The symptoms are alleviated by nothing, the symptoms are aggravated by nothing. Associated signs and symptoms: Pertinent positives: fever, Headache, bodyaches, Pertinent negatives: chest pain, sore throat, shortness of breath. The patient has not experienced similar symptoms in the past. The patient has been recently seen by a physician: for apparently unrelated complaints, patient had gastric sleeve and hiatal hernia repair on 11/11/2021. 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 Pneumococcal vaccine is not up to date, Flu vaccine is not up to date. - Social history:: Smoking status: Patient denies any tobacco usage or history of. ROS: 21:26 Eyes: Negative for injury, pain, redness, and discharge, ENT: Negative for injury, pm1 pain, and discharge, Cardiovascular: Negative for chest pain, palpitations, and edema. 21:26 Abdomen/GI: Negative for abdominal pain, nausea, vomiting, diarrhea, and constipation, Back: Negative for injury and pain, MS/Extremity: Negative for injury and deformity, Skin: Negative for injury, rash, and discoloration. 21:26 Constitutional: Positive for body aches, chills, fever, Negative for poor PO intake. 21:26 Respiratory: Positive for cough, shortness of breath, Negative for 21:26 Neuro: Positive for headache, Negative for numbness, tingling. 21:26 All other systems are negative. Exam: 21:26 Constitutional: This is a well developed, well nourished patient who is awake, alert, pm1 and in no acute distress. Head/Face: Normocephalic, atraumatic. 21:26 Skin: Warm, dry with normal turgor. Normal color with no rashes, no lesions, and no evidence of cellulitis. MS/ Extremity: Pulses equal, no cyanosis. Neurovascular intact. Full, normal range of motion. 21:26 Eyes: Exam is negative for acute changes, Periorbital structures: appear normal, Extraocular movements: no acute changes, Conjunctiva: no acute changes, no injection. 21:26 ENT: Exam is negative for acute changes, Mouth: no acute changes, Lips: normal, moist, Oral mucosa: normal, pink and intact, moist. 21:26 Cardiovascular: Exam negative for acute changes, Rate: normal, Rhythm: regular, Pulses: no pulse deficits are appreciated. 21:26 Respiratory: Exam negative for acute changes, respiratory distress, shortness of breath, Breath sounds: are clear throughout. 21:26 Abdomen/GI: Inspection: obese Palpation: abdomen is soft and non-tender, in all quadrants. 21:26 Neuro: Exam negative for acute changes, Orientation: is normal, Mentation: is normal, Motor: is normal, moves all fours. Vital Signs: 19:05 BP 149 / 86; Pulse 97; Resp 20 S; Temp 99.3; Pulse Ox 100% on R/A; Weight 166.47 kg; jg9 Height 5 ft. 7 in. (170.18 cm); 21:47 BP 129 / 69; Pulse 103; Resp 20; Temp 98.5(O); Pulse Ox 99% on R/A; Pain 0/10; ab2 19:05 Body Mass Index 57.48 (166.47 kg, 170.18 cm) jg9 MDM: 21:23 Patient medically screened. pm1 22:05 Data reviewed: vital signs. Data interpreted: Pulse oximetry: on room air is 99 %. pm1 Interpretation: normal. Counseling: I had a detailed discussion with the patient and/or guardian regarding: the historical points, exam findings, and any diagnostic results supporting the discharge/admit diagnosis, lab results, radiology results, the need for outpatient follow up, to return to the emergency department if symptoms worsen or persist or if there are any questions or concerns that arise at home. 11/28 20:45 Order name: COVID-19/FLU A+B (Document "Date of Onset" if Symptomatic); Complete Time: pm1 22:05 11/28 20:45 Order name: CBC with Diff; Complete Time: 21:44 pm1 11/28 20:45 Order name: Chest Single View XRAY; Complete Time: 22:05 pm1 11/28 20:45 Order name: IV Saline Lock; Complete Time: 20:56 pm1 11/28 20:45 Order name: CMP; Complete Time: 21:44 pm1 Administered Medications: No medications were administered Disposition: 11/29 01:33 Co-signature as Attending Physician, Bob Cleaning MD I agree with the assessment and kdr plan of care. Disposition Summary: 11/28/21 22:06 Discharge Ordered Location: Home pm1 Problem: new pm1 Symptoms: have improved pm1 Condition: Stable pm1 Diagnosis - Coronavirus infection, unspecified pm1 Followup: pm1 - With: Emergency Department - When: As needed - Reason: Worsening of condition Followup: pm1 - With: Private Physician - When: 2 - 3 days - Reason: Recheck today's complaints, Continuance of care, Re-evaluation by your physician Discharge Instructions: - Discharge Summary Sheet pm1 - COVID-19 pm1 - COVID-19 Frequently Asked Questions pm1 - 10 Things You Can Do to Manage Your COVID-19 Symptoms at Home - [facility] pm1 - COVID-19: Quarantine vs. Isolation - [facility] pm1 Forms: - Work release form pm1 - Medication Reconciliation Form pm1 - Thank You Letter pm1 - Antibiotic Education pm1 - Prescription Opioid Use pm1 Signatures: Dispatcher [employer] EDMS Bob Cleaning MD MD kdr Marinas, Patrick, NP REJECTED ITEMS CLERK pm1 Juanita Llanos RN RN jg9 Corrections: (The following items were deleted from the chart) 02:32 11/28 21:26 This 26 yrs old Male presents to ER via Ambulatory with complaints pm1 of Headache, Fever. pm1
[2021-11-28 23:24] VITALS: BP 129/69; TEMP 98.5; O2SAT 99
== END 2021-11-28 22:48 | disposition home or self-care (01) ==
LOC: ER 18:35
DX: U07.1 COVID-19 (principal); I10 Essential (primary) hypertension
CPT/HCPCS: 85025; 36415; 80053; 0240U; 71045; 99283

== ENCOUNTER 2024-04-19 00:49 | Emergency (ER) | payer OTHER ==
--- OUTSIDE RECORDS SUMMARY | 2024-04-19 00:52 | XMS REPORT | Continuity of Care Document ---
Author Name Unknown Address [address] [facility] [address] [place] [id number] [facility] Address [address] [facility] [address] [place] [address] Care Team Providers Care Loader Machine Name Role Phone Ghulam Noe Attending Clinician Unavailable Lizeth Garcia Attending Clinician [phone] LIZETH BEAN Attending Clinician Unavailable Sonia Bridges RN Attending Clinician UnavailJOSE GUADALUPE Moise Attending Clinician Unavailable KNOW, DOES_NOT Admitting Clinician Unavailable Ghulam Noe Admitting Clinician Unavailable Payers Payer Name Policy Type Policy Number Effective Date Expirati on Date Source Problems Condition Name Condition Details Condition Category Status Onset Date Resolution Date Last Treatment Date Treating Clinician Comments Source No known active problems No known active problems Disease [facility] Allergies, Adverse Reactions, Alerts Allergy Name Allergy Type Status Severity Reaction(s) Onset Date Inactive Date Treating Clinician Comments Source No Known Allergie s DA Active U 2020-11 00:00: 00 [facility] NO KNOWN ALLERGIE S Drug Class Active [facility] Social History Social Habit Start Date Stop Date Quantity Comments Source Exposure to SARS-CoV-2 (event) Not sure [facility] Sex Assigned At 1995 00:00:00 1995 00:00:[address] [facility] [place] [place] Smoking Status Start Date Stop Date Source Unknown if ever smoked [facility] Medications Ordered Medication Name Filled Medication Name Start Date Stop Date Current Medication? Ordering Clinician Indication Dosage Frequency Signature (SIG) Comments Components Source traMADoL (ULTRAM) tablet 50 mg 04-29 03:00: 00 04-29 01:52 :00 No 50mg 50 mg, Oral, ONCE NOW, 1 dose, 04/28/21 at 2200, Routine [facility] lisinopriL (PRINIVIL,Z ESTRIL) tablet 10 mg 04-29 03:00: 00 04-29 01:52 :00 No 10mg 10 mg, Oral, ONCE NOW, 1 dose, 04/28/21 at 2200, Routine [facility] cloNIDine (CATAPRES) tablet 0.1 mg 04-29 03:00: 00 04-29 01:52 :00 No .1mg 0.1 mg, Oral, ONCE, 1 dose, 04/28/21 at 2200, STAT [facility] lisinopriL 10 mg tablet 04-28 00:00: 00 Yes [id number] 10mg Take 1 tablet by mouth at bedtime. [facility] ibuprofen 600 mg tablet 04-28 00:00: 00 Yes [id number] 600mg Take 1 tablet by mouth every 6 (six) hours as needed for Pain (scale 4-6). [facility] benzonatate 100 mg capsule 12-23 00:00: 00 Yes [id number] 100mg Take 1 capsule by mouth 3 (three) times daily as needed for Cough. [facility] chlorphenir amine 4 mg tablet 12-23 00:00: 00 Yes [id number] 4mg Take 1 tablet by mouth every 6 (six) hours as needed for Allergies or Runny nose. [facility] multivitami n capsule 12-23 00:00: 00 Yes [id number] 1{capsu le} Take 1 capsule by mouth daily. [facility] calcium-mag nesium-zinc 333-133-8.3 mg Tab 12-23 00:00: 00 Yes [id number] Take as directed for daily dose. [facility] multivitami n capsule 12-23 00:00: 00 Yes [id number] 1{capsu le} Take 1 capsule by mouth daily. [facility] vitamin D3-folic acid 5,000 unit- 1 mg Tab 12-23 00:00: 00 01-23 05:59 :00 No [id number] 1{tbl} Take 1 tablet by mouth daily for 30 days. [facility] Vital Signs Vital Name Observation Time Observation Value Comments S alejo Systolic blood pressure 2021-04-29 02:50:00 148 mm[Hg] [facility] Diastolic blood pressure 2021-04-29 02:50:00 88 mm[Hg] [facility] Heart rate 2021-04-29 02:50:00 89 /min [facility] Body temperature 2021-04-29 02:50:[address] [facility] [place] [place] Respiratory rate 2021-04-29 02:50:00 21 /min [facility] [place] [place] Oxygen saturation in Arterial blood by Pulse oximetry 2021-04-29 02:50:00 97 /min [facility] Body height 2021-04-29 01:31:00 170.2 cm [facility] Body weight 2021-04-29 01:31:00 167.831 kg [facility] BMI 2021-04-29 01:31:00 57.95 kg/m2 [facility] Procedures Procedure Date / Time Performed Performing Clinicia n Source [id number] 2021-11-11 00:00:00 [facility] [id number] 2021-11-11 00:00:00 [facility] [id number] 2021-11-11 00:00:00 [facility] [id number] 2021-11-11 00:00:00 [facility] XR ANKLE 3+ VW RIGHT 2021-04-29 02:25:[address] [facility] [place] [place] XR FOOT 3+ VW RIGHT 2021-04-29 02:25:[address] [facility] [place] [place] NOTICE OF PRIVACY PRACTICES 2021-04-29 01:29:13 Doctor Unassigned, [employer] [facility] [place] [place] CONSENT/REFUSAL FOR DIAGNOSIS AND TREATMENT 2021-04-29 01:27:21 Doctor Unassigned, [employer] [facility] [place] [place] Encounters Start Date/Time End Date/Time Encounter Type Admission Type Attending [facility] Care Facility Care Department Encounter ID Source 2021-01-22 08:40:50 Inpatient Ghulam Williamson [facility] [id number] [facility] 2021-11-11 03:08:00 2021-11-12 13:34:00 Inpatient Ghulam Williamson [facility] MEDI.01 [id number] [facility] 2021-04-28 20:32:00 2021-04-28 21:56:00 Emergency Bean, Lizeth Orozco [facility] [id number] [facility] 2021-04-28 20:32:00 2021-04-28 20:32:00 Emergency X DHEERAJ BEANN [facility] ERT [id number] [facility] 2020-12-24 00:00:00 2020-12-24 00:00:00 Telephone Sonia Bridges [facility] [id number] [facility] 2020-12-23 12:36:00 2020-12-23 12:36:00 Emergency X QUINTEROSJOSE GUADALUPE [facility] ERT [id number] [facility] Results Test Description Test Time Test Comments Results Result Co mments Source BASIC METABOLIC [id number] 04:18:00* Test Item Value Reference Range Interpretation Comme nts SODIUM (test code = NA) 133 mmol/L 136-145 L Please note: New Reference Range Dec 2020 POTASSIUM (test code = K) 4.0 mmol/L 3.5-5.1 N CHLORIDE (test code = CL) 99 mmol/L 98-107 N Please note: New Reference Range Dec 2020 CARBON DIOXIDE (test code = CO2) 23 mmol/L 20-31 N Please note: N ew Reference Range Dec 2020 GLUCOSE (test code = GLU) 119 mg/dL 74-106 H Please note: New Reference Range Dec 2020 BLOOD UREA NITROGEN (test code = BUN) 7 mg/dL 9-23 L Please note: New Reference Range Dec 2020 GLOMERULAR FILTRATION RATE (test code = GFR) >=60 max estimate mL/min >60 Units are mL/min/1.73m2 The estimated glomerular filtration rate is computed usingpatient race, age (>18), sex, and serum creatinine. If anyof the needed data elements are missing the Laboratory cannot compute an estimation of the glomerular filtration rate. CREATININE (test code = CREAT) 0.90 mg/dL 0.70-1.30 N Please note: New Reference Range Dec 2020 CALCIUM (test code = CA) 8.2 mg/dL 8.7-10.4 L Please note: New Reference Range Dec 2020 [id number] 04:18:00* Test Item Value Reference Range Interpretation Comme nts PHOSPHOROUS (test code = PHOS) 3.4 mg/dL 2.4-5.1 N Please note: New Reference Range Dec 2020 [id number] 04:18:00* Test Item Value Reference Range Interpretation Comme nts MAGNESIUM (test code = MAG) 1.7 mg/dL 1.6-2.6 N Please note: New Reference Range Dec 2020 CBC W/AUTO [id number] 04:00:00* Test Item Value Reference Range Interpretation Comme nts WHITE BLOOD CELL (test code = WBC) 12.3 x10 3/uL 4.8-10.8 H RED BLOOD CELL (test code = RBC) 4.83 x10 6/uL 4.70-6.10 N HEMOGLOBIN (test code = HGB) 14.2 g/dL 14.0-18.0 N HEMATOCRIT (test code = HCT) 41.4 % 42.0-52.0 L MEAN CELL VOLUME (test code = MCV) 85.7 fL 80.0-94.0 N MEAN CELL HGB (test code = MCH) 29.4 pg 27-31 N MEAN CELL HGB CONCENTRATION (test code = MCHC) 34.3 G/DL 33-36.5 N RED CELL DISTRIBUTION WIDTH (test code = RDW) 12.6 % 12.9-16.9 L PLATELET COUNT (test code = PLT) 303 x10 3/uL 150-440 N MEAN PLATELET VOLUME (test c ode = MPV) 10.8 fL 8.9-12.4 N NEUTROPHIL % (test code = NT%) 74.4 [...] 0.04 x10 3/uL 0.0-0.20 N COMPREHENSIVE METABOLIC [id number] 13:44:00* Test Item Value Reference Range Interpretation Comme nts SODIUM (test code = NA) 137 mmol/L 136-145 N Please note: New Reference Range Dec 2020 POTASSIUM (test code = K) 4.2 mmol/L 3.5-5.1 N CHLORIDE (test code = CL) 100 mmol/L 98-107 N Please note: New Reference Range Dec 2020 CARBON DIOXIDE (test code = CO2) 26 mmol/L 20-31 N Please note: N ew Reference Range Dec 2020 GLUCOSE (test code = GLU) 77 mg/dL 74-106 N Please note: New Reference Range Dec 2020 BLOOD UREA NITROGEN (test code = BUN) 11 mg/dL 9-23 N Please note: N ew Reference Range Dec 2020 GLOMERULAR FILTRATION RATE (test code = GFR) >=60 max estimate mL/min >60 Units are mL/min/1.73m2 The estimated glomerular filtration rate is computed usingpatient race, age (>18), sex, and serum creatinine. If anyof the needed data elements are missing the Laboratory cannot compute an estimation of the glomerular filtration rate. CREATININE (test code = CREAT) 1.00 mg/dL 0.70-1.30 N Please note: New Reference Range Dec 2020 TOTAL PROTEIN (test code = PROT) 7.6 g/dL 5.7-8.2 N Please note: New Reference Range Dec 2020 ALBUMIN (test code = ALB) 5.1 g/dL 3.2-4.8 H Please note: New Reference Range Dec 2020 CALCIUM (test code = CA) 9.7 mg/dL 8.7-10.4 N Please note: New Reference Range Dec 2020 BILIRUBIN TOTAL (test code = BILT) 0.8 mg/dL 0.3-1.2 N Please note: New Reference Range Dec 2020 SGOT/AST (test code = AST) 53 U/L <34 H Please note: New Reference Range Dec 2020 SGPT/ALT (test code = ALT) 141 U/L 10-49 H Please note: New Reference Range Dec 2020 ALKALINE PHOSPHATASE (test code = ALKP) 59 U/L 46-116 N Please note: New Reference Range Dec 2020 PROTHROMBIN [id number] 13:32:00* Test Item Value Reference Range Interpretation Comme nts PROTHROMBIN TIME PATIENT (test code = PTP) 14.1 SECONDS 10.3-12.9 H INTERNATIONAL NORMAL RATIO (test code = INR) 1.23 INR UNIT 0.9-1.11 H The INR is usefu l only for monitoring anticoagulant therapy.It may be unreliable in the initial phase of antigoagulationand in unstable patients. Indication for Anticoagulation Recommended INR 1. Prevention of venous thomboembolism 2.0-3.0in high-risk patients; treatment of venousthrombosis and pulmonary embolism aftera course of heparin; prevention of systemicembolism in a variety of conditions, including atrial fibrillation and prothetic tissue heart valves, 2. Prosthetic mechanical heart valves; 2.5-3.5recurrent systemic embolism. THROMBOPLASTIN TIME [id number] 13:32:00* Test Item Value Reference Range Interpretation Comme nts THROMBOPLASTIN TIME PARTIAL (test code = PTT) 37.5 SECONDS 23.8-34.8 H INTERPRETATIVE DATA:Therapeutic range: Unfractionated heparin:55 - 80 seconds Argatroban:1.5 to 3 times the baseline PTT CBC W/AUTO [id number] 13:20:00* Test Item Value Reference Range Interpretation Comme nts WHITE BLOOD CELL (test code = WBC) 8.9 x10 3/uL 4.8-10.8 N RED BLOOD CELL (test code = RBC) 5.36 x10 6/uL 4.70-6.10 N HEMOGLOBIN (test code = HGB) 15.5 g/dL 14.0-18.0 N HEMATOCRIT (test code = HCT) 45.7 % 42.0-52.0 N MEAN CELL VOLUME (test code = MCV) 85.3 fL 80.0-94.0 N MEAN CELL HGB (test code = MCH) 28.9 pg 27-31 N MEAN CELL HGB CONCENTRATION (test code = MCHC) 33.9 G/DL 33-36.5 N RED CELL DISTRIBUTION WIDTH (test code = RDW) 12.8 % 12.9-16.9 L PLATELET COUNT (test code = PLT) 335 x10 3/uL 150-440 N MEAN PLATELET VOLUME (test c ode = MPV) 10.6 fL 8.9-12.4 N NEUTROPHIL % (test code = NT%) 63.8 [...] = BA#) 0.07 x10 3/uL 0.0-0.20 N Notes Date/Time Note Provider Source 2021-12-23 07:52:00 [id number] SYn8mmkQNg/[id number]:52:06094 2-0021 [facility] [address] [place] [address] PATIENT NAME: MIGUEL NIELSEN JR ADMIT DATE: 11/11/21ACCOUNT NO: [id number] ROOM NO: 0571 AGE: 26 REPORT TYPE: 360 - QUERY RESPONSE DOCUMENT SEX: M ADMITTING PHYSICIAN:Ghulam Noe MD ATTENDING PHYSICIAN:Ghulam Noe MD Provider Query QUERY TEXT: Condition General 360MD Query related questions should be directed to: [facility] Coding Query Hotline Based on your medical judgment kindly further specify the clinical significance of the indicators mentioned below (Hyponatremia, abnormal sodium level, unable to determine or other more appropriate diagnosis) The patient's Clinical Indicators include:SODIUM (mmol/L) 133L - LABstatus post laparoscopic sleeve gastrectomy, hiatal hernia, liver wedge biopsy - Internal Med. Progress Note 11/12/2021D5W 0.45% NS/KCl 20 mEq 1,000 mL 00:09 1 MLS Intravenous - MAR Options provided:-- Respond - Create new note now-- Dismiss - Not applicable / Not valid-- Dismiss - Clinically unable to determine / Unknown-- Assign to another provider QUERY RESPONSE: it is not significant Query created by: Justino Burgess on 11/15/2021 11:20 PM at 0752 PATIENT NAME: MIGUEL NIELSEN JR noteP.[id number] for patient [id number]:53:32 [facility] 2021-11-11 16:18:00 [id number]+Xo9SKFma7 Q4[id number]:18:06148 2-0098 [facility] [address] [place] [address] [place] [address] PATIENT NAME: MIGUEL NIELSEN JR ADMIT DATE: 11/11/21ACCOUNT NO: [id number] ROOM NO: P.0571 AGE: 26 REPORT TYPE: CONSULTATION SEX: M ADMITTING PHYSICIAN:Ghulam Noe MD ATTENDING PHYSICIAN:Ghulam Noe MD CONSULTATION DATE: 11/11/2021 CONSULTING PHYSICIAN: Terra Khalil MD INTERNAL MEDICINE CONSULTATION REFERRING PHYSICIAN: Ghulam Noe MD REASON FOR CONSULTATION: Postoperative medical management. HISTORY OF PRESENT ILLNESS: This is a 26-year-old male with morbid obesity (67inches tall, 401 pounds, BMI 62.8 kilogram per meter square), essentialhypertension, hiatal hernia, who underwent laparoscopic sleeve gastrectomy,hiatal hernia repair and liver wedge biopsy today. The patient tolerated theprocedure without complication. PAST MEDICAL HISTORY:1. Essential hypertension.2. Gastroesophageal reflux disease.3. Hiatal hernia. PAST SURGICAL HISTORY: None. FAMILY HISTORY: Obesity, heart disease, diabetes, hypertension, gallstone. ALLERGIES: NO KNOWN DRUG ALLERGIES. HOME MEDICATIONS: Lisinopril. SOCIAL HISTORY: He denied tobacco, alcohol, or illicit drug use. REVIEW OF SYSTEMS: No fever, no chills, no cough, no cold, no shortness ofbreath. No chest pain. No abdominal pain. No nausea, vomiting, diarrhea orconstipation. No dysuria or urinary incontinence or frequency. No skin rash.No bleeding tendencies. No anxiety or depression. No headache or dizziness.No hearing or visual disturbances. Positive shoulder pain, wrist pain, backpain, knee pain, ankle pain and foot pain. No muscle weakness. No polyuria orpolydipsia. No numbness or tingling sensation. Positive chronic fatigue. PHYSICAL EXAMINATION:GENERAL APPEARANCE: Morbidly obese, not in distress.VITAL SIGNS: Temperature 36.9, blood pressure 148/81, heart rate of 84,respiratory rate 20, SpO2 97% on 2 liters per minute via nasal cannula. PATIENT NAME: MIGUEL NIELSEN JR HEAD AND NECK: Armorel conjunctivae, anicteric sclerae. Negative JVD. Negativelymphadenopathy. No goiter. No oral lesion.CHEST: Clear.HEART: Regular rate and rhythm.ABDOMEN: Soft, nontender. Positive bowel sounds.EXTREMITIES: No edema, no cyanosis, no clubbing, no tenderness.NEUROLOGIC: No gross motor or sensory deficits. LABORATORY DATA: Preoperative lab done on 11/10/2021, BUN 11, creatinine 1,total bilirubin 0.8, AST 53, ALT 141, alkaline phosphatase 59. WBC 8.9,hemoglobin 15.5, and platelet count 335. IMAGING DATA: EKG showed normal sinus rhythm. ASSESSMENT AND PLAN:1. Morbid obesity, hiatal hernia, liver dysfunction, status post laparoscopicsleeve gastrectomy, hiatal hernia, liver wedge biopsy. Continue pain control.Encourage incentive spirometry and ambulation. Start clear liquid diet. 2. Essential hypertension. Hold lisinopril. The patient will be started onenalapril IV p.r.n. Continue to monitor blood pressure and heart rate. 3. Start enoxaparin in a.m. for deep venous thrombosis prophylaxis. 4. Care coordinated with RN. Dictated By: Terra Khalil MD WT: CON:P.STONEY/NEW/NTSDD: 11/11/2021 16:18:03DT: 11/11/2021 18:10:24Conf#: [id number]/DID#: [id number] Authenticated and Edited by Terra Khalil MD On 11/12/21 3:24:54 PM at 0329 PATIENT NAME: MIGUEL NIELSEN JR :10:00[facility] [id number] for patient [id number]:30:07 [facility] 2021-11-11 14:53:00 [id number] [id number]/[id number] [id number]:53:55298 2-0097 [facility] [address] [place] [address] PATIENT NAME: MIGUEL NIELSEN JR ADMIT DATE: 11/11/21ACCOUNT NO: [id number] ROOM NO: [facility]71 AGE: 26 REPORT TYPE: CONSULTATION SEX: M ADMITTING PHYSICIAN:Ghulam Noe MD ATTENDING PHYSICIAN:Ghulam Noe MD CONSULTATION DATE: 11/11/2021 CONSULTING PHYSICIAN: Ghulam Noe MD SURGEON: Ghulam Noe M.D. PREOPERATIVE DIAGNOSES:1. Pain status post sleeve gastrectomy.2. Morbid obesity. POSTOPERATIVE DIAGNOSES:1. Status post sleeve gastrectomy.2. Morbid obesity. PROCEDURE PERFORMED: Abdominal wall catheter placement x2. HEEL BLACKER: ANESTHESIA: General endotracheal. ESTIMATED BLOOD LOSS: Minimal. COMPLICATIONS: None. INDICATIONS: This is a morbidly obese patient undergoing a sleeve gastrectomy. Postoperatively, decreased narcotic use is desired to prevent causingrespiratory distress in this patient. Therefore, the abdominal wall catheterswill be placed to help decrease the postoperative pain, and subsequentlynarcotic use. OPERATIVE COURSE: Through the left subcostal incision, I tunneled two 8-inchsheaths and tunnelers in the prefascial space, one superior to the umbilicus andone inferior to the umbilicus. The umbilicus is the site of maximal painbecause this is where the largest incisions are, the fascia is closed and thespecimen is extracted. Therefore this is the site of maximal pain. Thetunnelers were removed and catheters were advanced through the sheaths and thesheaths were peeled away. The catheters will perform a partial abdominal wallblock around this area. This will decrease the postoperative pain andsubsequent narcotic use. The catheters were attached to a pump filled with 0.5%Marcaine. This was held in place with Steri-Strips and Tegaderm. There were nocomplications. Dictated By: Ghulam Noe MD PATIENT NAME: MIGUEL NIELSEN JR WT: CON:SAMMI/DAISY/NTSDD: 11/11/2021 14:53:51DT: 11/11/2021 16:47:30Conf#: [id number]/DID#: [id number] Authenticated by Ghulam Noe MD On 11/18/2021 08:15:47 AM at 0815 PATIENT NAME: MIGUEL NIELSEN JR :47:00P.[place] [id number] for patient wswwTLZRVGSTDDWPTW2352-90-71I29:16:21 [facility] 2021-11-11 14:53:00 [id number] [id number] xrPLtIiZq/[id number]:53:11891 2-[address] [address] PATIENT NAME: MIGUEL NIELSEN JR ADMIT DATE: 11/11/21ACCOUNT NO: [id number] ROOM NO: [facility]71 AGE: 26 REPORT TYPE: OPERATIVE REPORT SEX: M ADMITTING PHYSICIAN:Ghulam Noe MD ATTENDING PHYSICIAN:Ghulam Noe MD OPERATION DATE: 11/11/2021 SURGEON: Ghulam Noe MD. HOUSEKEEPING MANAGER: ____, LSA. PREOPERATIVE DIAGNOSES: Include:1. Hiatal hernia.2. Hepatitis, NOS.3. Reflux esophagitis.4. Hypertension.5. Super morbid obesity (body mass index 76.4). POSTOPERATIVE DIAGNOSES:1. Hiatal hernia.2. Hepatitis, NOS.3. Reflux esophagitis.4. Hypertension.5. Super morbid obesity (body mass index 76.4).6. Hepatomegaly. PROCEDURES PERFORMED:1. Laparoscopic sleeve gastrectomy.2. Laparoscopic liver wedge biopsy.3. Laparoscopic hiatal hernia repair.4. EGD.5. Bilateral transverse abdominis plane blocks. ANESTHESIA: General endotracheal anesthesia. ESTIMATED BLOOD LOSS: Minimal. COMPLICATIONS: None. FINDINGS: The patient had an enlarged and fatty infiltrated liver. Inaddition, he had elevated transaminases preoperatively. Therefore, liver wedgebiopsy was performed. The patient had a 3-cm hiatal hernia, which we dissectedout and repaired primarily. At the completion of the case, an intraoperativeEGD was performed, there was no sign of bleeding or leaks. INDICATIONS: This is a morbidly obese patient with multiple comorbidities whocomes in seeking weight loss surgery in the form of a gastric sleeve. Thepatient underwent our extensive preoperative testing and was deemed an PATIENT NAME: MIGUEL NIELSEN JR appropriate candidate. The patient understands the risks, benefits andalternatives of the above-stated procedure which includes but are not limited topain, infection, bleeding, leak, pulmonary embolism, hernia occurrence, failureto lose greater than 25% the excess body weight, need for future procedures,risk of weight regain, and mortality rate of approximately 1 to 400 and thepatient agreed to proceed. OPERATIVE COURSE: The patient was given Rocephin 1 g IV and 5000 units ofsubcutaneous heparin in the preoperative holding area. The patient was broughtto the operating room and placed in the supine position on the operating roomtable. SCDs were applied. General endotracheal anesthesia was induced. Anorogastric tube was placed and the patient was prepped and draped in the usualsterile fashion. All incisions were infiltrated with 0.25% Marcaine withepinephrine prior to incision. A 5-mm lateral left subcostal incision was madeand an Optiview trocar and endoscope were advanced down through the layers ofthe abdominal wall and into the peritoneum. We insufflated the abdomen and nounderlying injuries were noted. Under direct visualization, a 5-mm trocar wasplaced in the right subcostal space as well as one supraumbilically. A 15-mmtrocar was placed to the left of the supra-umbilical one. To help decrease the patient's postoperative pain and subsequent narcotic use,we performed bilateral transverse abdominis plane blocks. A 60 mL of 0.5%Naropin was used with half injected under each subcostal margin from dermatomelevels T6-T10. As we examined the abdomen, we noted the patient's liver was enlarged and fattyinfiltrated. The left lobe extended to cover entire fundus and body of thestomach. In addition, the patient was noted to have elevated transaminasespreoperatively. A liver wedge biopsy was therefore performed. On the lateralleft lobe of the liver, we used EnSeal to wedge out a 1 x 1 cm piece of liverand passed it off as specimen. There was good hemostasis obtained. With the liver lifted up, we could see the patient's hiatal hernia. Thegastrohepatic ligament was opened up with the EnSeal and we identified the right chi. The hernia sac along the right chi was carefully opened up and wedissected the right chi free of the incarcerated stomach and esophagus. Angleof His was then mobilized off the left chi and we dissected out the hiatuscompletely in a 360-degree fashion. We circumferentially mobilized around theesophagus, taking down all the connective tissue going up about 7 cm into themediastinum. We reduced the paraesophageal fat and tissue as well as about 2 cm of esophagus back down into the peritoneum. We then reapproximated the crura posteriorly with 2 clpnzz-io-sdgys sutures using 2-0 Surgidacs from theEndoStitch. After the last suture, there was just enough space to pass thegrasper tip between the closure and the esophagus. We identified the pylorus and approximately 4 cm proximal to it, we opened upthe gastrocolic ligament. We took down the greater curve of the stomach withthe EnSeal. We stopped when we reached the inferior pole of the spleen. Sohan removed the orogastric tube and a 34-Surinamese Bougie was advanced down intothe pylorus. We then advanced a 60 mm black staple-load with SeamGuard stripsand articulated it at a 45 degrees angle going up towards the spleen. We firedit from about 4 cm proximal to the pylorus with care taken to stay outside thevessels at the incisura and the Bougie as well. We then fired 3 additional 60mm purple staple-loads with SeamGuard strips, staying adjacent to the Bougie and PATIENT NAME: MIGUEL NIELSEN going up towards the angle of His. The EnSeal was used to completely mobilize the angle of His and take down theshort gastrics. The gastrophrenic fat pad was taken off the left side of thestomach as well. We then fired a last purple staple-load with SeamGuard strips,leaving just a small dog-ear to prevent stapling upon the GE junction. We then performed an intraoperative EGD to evaluate for bleeding or leak. Withthe sleeve covered in saline, a mouth guard was placed and the endoscope wasintroduced down transorally under direct visualization and insufflation. At theGE junction, we noted that there was tiny dog-ear and advanced down through anarrow gastric sleeve around the angularis and into the first portion of theduodenum. There was no sign of bleeding or leak, and laparoscopically, we sawno bubbles. Subsequently, we suctioned out the insufflation and withdrew theendoscope and laparoscopically, we suctioned out the irrigation as well. A 2-0 Vicryl stitch was used to pexy the cut edge of the omentum back to thestaple line adjacent to the angularis to help prevent kinking of the sleeve. Ithen removed the specimen through the 15 mm trocar site. Using #1 Vicryl, wereapproximated the fascia here under direct visualization with a suture passer.I then desufflated the abdomen and withdrew the remaining trocars. The skin atall port sites was closed with 4-0 Monocryl in a subcuticular fashion andDermabond was applied as a dressing. The sponge, needle, and instrument countswere correct and there were no complications. Dictated By: Ghulam Noe MD WT: OP:P.STONEY/DAISY/KALIADD: 11/11/2021 14:53:29DT: 11/11/2021 17:08:36Conf#: [id number]/DID#: [id number] Authenticated and Edited by Ghulam Noe MD On 11/18/21 8:15:44 AM at 0817 PATIENT NAME: MIGUEL NIELSEN [id number]:00P.[id number] lable for patient [id number]:17:[id number] [facility] 2021-11-11 14:53:00 [id number] [id number] [facility] [address] [place] [address] [place] [address] PATIENT NAME: MIGUEL NIELSEN JR ADMIT DATE: 11/11/21ACCOUNT NO: [id number] ROOM NO: [facility] AGE: 26 REPORT TYPE: OPERATIVE REPORT SEX: M ADMITTING PHYSICIAN:Ghulam Noe MD ATTENDING PHYSICIAN:Ghulam Noe MD OPERATION DATE: 11/11/2021 SURGEON: Ghulam Noe M.D. PREOPERATIVE DIAGNOSES:1. Pain status post sleeve gastrectomy.2. Morbid obesity. POSTOPERATIVE DIAGNOSES:1. Status post sleeve gastrectomy.2. Morbid obesity. PROCEDURE PERFORMED: Abdominal wall catheter placement x2. HEEL BLACKER: ANESTHESIA: General endotracheal. ESTIMATED BLOOD LOSS: Minimal. COMPLICATIONS: None. INDICATIONS: This is a morbidly obese patient undergoing a sleeve gastrectomy. Postoperatively, decreased narcotic use is desired to prevent causingrespiratory distress in this patient. Therefore, the abdominal wall catheterswill be placed to help decrease the postoperative pain, and subsequentlynarcotic use. OPERATIVE COURSE: Through the left subcostal incision, I tunneled two 8-inchsheaths and tunnelers in the prefascial space, one superior to the umbilicus andone inferior to the umbilicus. The umbilicus is the site of maximal painbecause this is where the largest incisions are, the fascia is closed and thespecimen is extracted. Therefore this is the site of maximal pain. Thetunnelers were removed and catheters were advanced through the sheaths and thesheaths were peeled away. The catheters will perform a partial abdominal wallblock around this area. This will decrease the postoperative pain andsubsequent narcotic use. The catheters were attached to a pump filled with 0.5%Marcaine. This was held in place with Steri-Strips and Tegaderm. There were nocomplications. CORRECTED 11/18/2021 [id number] Dictated By: Ghulam Noe MD PATIENT NAME: MIGUEL NIELSEN JR WT: OP:P.STONEY/DAISY/NTSDD: 11/11/2021 14:53:51DT: 11/11/2021 16:47:30Conf#: [id number]/DID#: [id number] Authenticated by Ghulam Noe MD On 12/15/2021 10:55:18 AM at 1058 PATIENT NAME: MIGUEL NIELSEN JR [id number]:00P.[id number] lable for patient [id number]:56 [facility] 2021-11-10 12:59:00 [id number] 1-[address] [address]XTOAJCD NAME: MIGUEL NIELSEN JR ADMIT DATE: ACCOUNT NO: [id number] ROOM NO: AGE: 26 REPORT TYPE: eELECTROCARDIOGRAM SEX: M ADMITTING PHYSICIAN: Ghulam Noe MD ATTENDING PHYSICIAN: Ghulam Noe MD Order:[id number] Reason : SDS Test Date/Time Stamp:TueNov 10 2021 12:59:02Blood Pressure : / mmHGVent. Rate : 078 BPM Atrial Rate : 078 BPM P-R Int : 184 ms QRS Dur : 100 ms QT Int : 366 ms P-R-T Axes : 010 001 036 degrees QTc Int : 417 ms Normal sinus rhythmNormal ECGNo previous ECGs availableConfirmed by KIRTI SOLIS MD ([id number]) on 11/10/2021 6:24:45 PM Referred By: Ghulam Noe Confirmed by:KIRTI SOLIS MD at 6183 PATIENT NAME: MIGUEL NIELSEN JR .[id number] AVAvailable for patient [id number]:25:04 [facility]
[2024-04-19] MEDS ORDERED: KETOROLAC 30 MG/ML INJ ONE (01:59)
[2024-04-19] MEDS ORDERED: METOCLOPRAMIDE 10 MG/2mL INJ ONE (01:59)
[2024-04-19] MEDS ORDERED: NA CHLORIDE 0.9% 1,000 ML ONE (01:59)
[2024-04-19] MEDS ORDERED: DIPHENHYDRAMINE 50 MG/ML VIAL ONE (01:59)
--- NOTE | 2024-04-19 03:44 | EDPHYS ---
Physician Documentation [facility] Name: Arpan Aguila Jr Age: 28 yrs Sex: Male : 1995 Arrival Date: 04/19/2024 Time: 00:49 Bed 8 Private MD: ED Physician Eric Nieves HPI: 04/19 01:00 This 28 yrs old Male presents to ER via Unassigned with complaints of Headache.sp4 05:59 28-year-old male presents with acute onset of headache starting 6 PM today. Patient sp4 reports a right-sided headache acutely associated with nausea. History of hypertension. No history of migraines.. 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 Flu vaccine is not up to date. - Infectious Disease History:: Denies. - Social history:: Smoking status: . - Family history:: not pertinent. ROS: 05:59 Constitutional: Negative for fever, chills, and weight loss, positive for acute with sp4 right-sided headache. 05:59 All other systems are negative, Exam: 05:59 Constitutional: This is a well developed, well nourished patient who is awake, alert, sp4 and in no acute distress. Head/Face: Normocephalic, atraumatic. Eyes: Pupils equal round and reactive to light, extra-ocular motions intact. Lids and lashes normal. Conjunctiva and sclera are not injected. Cornea within normal limits. Periorbital areas with no swelling, redness, or edema. ENT: Nares patent. No nasal discharge, no septal abnormalities noted. Tympanic membranes are normal and external auditory canals are clear. Oropharynx with no redness, swelling, or masses, exudates, or evidence of obstruction, uvula midline. Mucous membranes moist. Neck: Trachea midline, no thyromegaly or masses palpated, and no cervical lymphadenopathy. Supple, full range of motion without nuchal rigidity, or vertebral point tenderness. Chest/axilla: Normal chest wall appearance and motion. Nontender with no deformity. No lesions are appreciated. Cardiovascular: Regular rate and rhythm with a normal S1 and S2. No gallops, murmurs, or rubs. Normal PMI, no JVD. No pulse deficits. Respiratory: Lungs have equal breath sounds bilaterally, clear to auscultation and percussion. No rales, rhonchi or wheezes noted. No increased work of breathing, no retractions or nasal flaring. Abdomen/GI: Soft, with normal bowel sounds. No distension or tympany. No guarding or rebound. No evidence of tenderness throughout. Male : Normal genitalia with no discharge or lesions. Skin: Warm, dry with normal turgor. Normal color with no rashes, no lesions, and no evidence of cellulitis. MS/ Extremity: Pulses equal, no cyanosis. Neurovascular intact. Full, normal range of motion. Neuro: Awake and alert, GCS 15, oriented to person, place, time, and situation. Cranial nerves II-XII grossly intact. Motor strength 5/5 in all extremities. Sensory grossly intact. Psych: Awake, alert, with orientation to person, place and time. Behavior, mood, and affect are within normal limits Vital Signs: 01:04 BP 143 / 83; Pulse 46; Resp 16; Temp 98.4; Pulse Ox 100% ; Weight 126.1 kg; Height 5 vc1 ft. 7 in. ; Pain 10/10; 02:10 BP 154 / 95; Pulse 52; Resp 17; Pulse Ox 100% ; jj7 03:10 BP 126 / 69; Pulse 50; Resp 16; Pulse Ox 97% ; jj7 03:59 BP 120 / 63; Pulse 50; Resp 18 S; Pulse Ox 97% on R/A; jw7 01:04 Body Mass Index 43.54 (126.10 kg, 170.18 cm) vc1 01:04 Pain Scale: Adult vc1 NIH Stroke Scale Scores: 05:59 NIHSS Score: 0 sp4 Bradshaw Coma Score: 05:59 Eye Response: spontaneous(4). Motor Response: obeys commands(6). Verbal Response: sp4 oriented(5). Total: 15. MDM: 01:06 Patient medically screened. sp4 03:41 ED course: EXAM: CT Head Without Intravenous Contrast CLINICAL HISTORY: The patient is sp4 28 years old and is Male; new onset headache TECHNIQUE: Axial computed tomography images of the head/brain without intravenous contrast. Sagittal and coronal reformatted images were created and reviewed. This CT exam was performed using one or more of the following dose reduction techniques: automated exposure control, adjustment of the mA and/or kV according to patient size, and/or use of iterative reconstruction technique. COMPARISON: No relevant prior studies available. FINDINGS: Brain: Unremarkable. No hemorrhage. No significant white matter disease. No edema. Ventricles: Unremarkable. No ventriculomegaly. Bones/joints: Unremarkable. No acute fracture. Soft tissues: Unremarkable. Sinuses: Unremarkable as visualized. Mastoid air cells: Unremarkable as visualized. No mastoid effusion. IMPRESSION: No acute intracranial abnormality. . 05:59 Differential diagnosis: cerebral vascular accident, migraine, neoplasm, trigeminal sp4 neuralgia, vasomotor headache. Data reviewed: vital signs, nurses notes, radiologic studies, CT scan. ED course: CT head is negative. Patient stable for discharge home. Will prescribe Fioricet as needed headache.. 04/19 02:22 Order name: Glucose, Ancillary Testing; Complete Time: 03:41 EDMS 04/19 02:23 Order name: Glucose, Ancillary Testing EDMS 04/19 01:05 Order name: CT Head Brain wo Cont sp4 04/19 01:05 Order name: Saline Lock; Complete Time: 01:26 sp4 04/19 01:05 Order name: Accucheck Blood Glucose; Complete Time: 02:10 sp4 Administered Medications: 02:04 Drug: metoCLOPramide IVP 10 mg IVP once; over 1 to 2 minutes Route: IVP; Site: right [facility] antecubital; 04:01 Follow up: Response: No adverse reaction; Marked relief of symptoms jw7 02:05 Drug: NS 0.9% IV 1000 ml IV at 1 bolus Per protocol; 1000 mL bolus Route: IV; Rate: 1 jj7 bolus; Site: right antecubital; 04:01 Follow up: Response: No adverse reaction; IV Status: Completed infusion; IV Intake: jw7 1000ml 02:05 Drug: diphenhydrAMINE IVP 50 mg IVP once Route: IVP; Site: right antecubital; jj7 04:01 Follow up: Response: No adverse reaction; Marked relief of symptoms jw7 02:05 Drug: Ketorolac IVP 30 mg IVP once Route: IVP; Site: right antecubital; jj7 04:01 Follow up: Response: No adverse reaction; Marked relief of symptoms; Pain is decreased jw7 Disposition Summary: 04/19/24 03:44 Discharge Ordered Notes: Location: Home sp4 Problem: new sp4 Symptoms: have improved sp4 Condition: Stable sp4 Diagnosis - Migraine without aura, not intractable sp4 Followup: sp4 - With: Private Physician - When: 7 - 10 days - Reason: Recheck today's complaints Discharge Instructions: - Discharge Summary Sheet sp4 - Migraine Headache, [id number] sp4 Forms: - Patient Portal Instructions sp4 Prescriptions: - Fioricet 50-300-40 mg Oral capsule - take 1 capsule ORAL route every 6 hours PRN headache; 30 capsule; Refills: 0, sp4 Product Selection Permitted NIH Stroke Scale - NIH Stroke Score Date: 04/19/2024 Time: 05:59 Total Score = 0 10. Dysarthria (speech clarity - read or repeat words) - 0(Normal) 11. Extinction and Inattention (visual/tactile/auditory/spatial/personal) - 0(No abnormality) 1a. Level of Consciousness (LOC) - 0(Alert) 1b. Level of Consciousness (LOC) (Month \T\ Age) - 0(Both) 1c. LOC Commands (Open \T\ Closes Eyes/Sprinkler Fitter) - 0(Both) 2. Best Gaze (Lateral Gaze Paresis) - 0(Normal) 3. Visual Field Loss - 0(No visual loss) 4. Facial Palsy - 0(Normal) 5a. Left Arm: Motor (10-second hold) - 0(No drift) 5b. Right Arm: Motor (10-second hold) - 0(No drift) 6a. Left Leg: Motor (5-second hold - always test supine) - 0(No drift) 6b. Right Leg: Motor (5-second hold - always test supine) - 0(No drift) 7. Limb Ataxia (finger/nose \T\ heel/pearson - test with eyes open) - 0(Absent) 8. Sensory Loss (pinprick arms/legs/face) - 0(Normal) 9. Best Language: Aphasia (description/naming/reading) - 0(No aphasia) Initials: sp4 Signatures: Dispatcher [employer] EDMS Calcote, Quin, RN RN vc1 Pasquale Fish RN RN jj7 Eric Nieves MD MD sp4 Terri Lozano RN jw7
--- NOTE | 2024-04-19 03:44 | ER ---
Nurse's Notes [facility] Name: Arpan Aguila Jr Age: 28 yrs Sex: Male : 1995 Arrival Date: 04/19/2024 Time: 00:49 Bed 8 Private MD: Diagnosis: Migraine without aura, not intractable Presentation: 04/19 01:04 Chief complaint: Patient states: severe right sided headache. vc1 01:04 Coronavirus screen: Vaccine status: Patient reports being unvaccinated. Client denies vc1 travel out of the [place] in the last 14 days. At this time, the client does not indicate any symptoms associated with coronavirus-19. Ebola Screen: Patient negative for fever greater than or equal to 101.5 degrees Fahrenheit, and additional compatible Ebola Virus Disease symptoms Patient denies exposure to infectious person. Patient denies travel to an Ebola-affected area in the 21 days before illness onset. No symptoms or risks identified at this time. Initial Sepsis Screen: Does the patient meet any 2 criteria? No. Patient's initial sepsis screen is negative. Does the patient have a suspected source of infection? No. Patient's initial sepsis screen is negative. Risk Assessment: Do you want to hurt yourself or someone else? Patient reports no desire to harm self or others. Onset of symptoms was April 18, 2024 at 18:00. 01:04 Method Of Arrival: Ambulatory vc1 01:04 Acuity: KVNG 3 vc1 Triage Assessment: 01:57 Headache History: Denies prior headaches. General: Appears in no apparent distress. vc1 uncomfortable, well groomed, well developed, Behavior is calm, cooperative, appropriate for age. Pain: Complains of pain in right occipital area and right temporal area and right side of the back of head and right frontal area Pain does not radiate. Pain currently is 10 out of 10 on a pain scale. Quality of pain is described as sharp, Pain began 6 pm. Pain: Also complains of nausea. EENT: No deficits noted. No signs and/or symptoms were reported regarding the EENT system. Neuro: Level of Consciousness is awake, alert, obeys commands, Oriented to person, place, time, situation, Appropriate for age Reports headache in right parietal area, frontal area, occipital area, that is the "worst ever", since yesterday at 6 pm. Cardiovascular: No deficits noted. Respiratory: Airway is patent Respiratory effort is even, unlabored, Respiratory pattern is regular, symmetrical. GI: Abdomen is round non-distended, Reports nausea. : No deficits noted. No signs and/or symptoms were reported regarding the genitourinary system. Derm: Skin is intact, is healthy with good turgor, Skin is dry, Skin is normal, Skin temperature is warm. Musculoskeletal: No deficits noted. No signs and/or symptoms reported regarding the musculoskeletal system. 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 Flu vaccine is not up to date. - Infectious Disease History:: Denies. - Social history:: Smoking status: . - Family history:: not pertinent. Screenin:26 [facility] ED Fall Risk Assessment (Adult) History of falling in the last 3 months, jj7 including since admission No falls in past 3 months (0 pts) Confusion or Disorientation No (0 pts) Intoxicated or Sedated No (0 pts) Impaired Gait No (0 pts) Mobility Assist Device Used No (0 pt) Altered Elimination No (0 pt) Score/Fall Risk Level 0 - 2 = Low Risk Oriented to surroundings, Maintained a safe environment, Educated pt \\T\\ family on fall prevention, incl call for assistance when getting out of bed. Abuse screen: Denies threats or abuse. Nutritional screening: No deficits noted. Tuberculosis screening: No symptoms or risk factors identified. Assessment: 01:26 General: Appears in no apparent distress. uncomfortable, Behavior is calm, cooperative, jj7 appropriate for age. Pain: Complains of pain in top of head, right frontal area, right side of the back of head, right temporal area and right occipital area. Neuro: Reports headache in right parietal area, frontal area. 02:30 Reassessment: Patient appears in no apparent distress at this time. No changes from jw7 previously documented assessment. Patient and/or family updated on plan of care and expected duration. Pain level reassessed. Patient is alert, oriented x 3, equal unlabored respirations, skin warm/dry/pink. 03:30 Reassessment: Patient appears in no apparent distress at this time. Patient and/or jw7 family updated on plan of care and expected duration. Pain level reassessed. Patient is alert, oriented x 3, equal unlabored respirations, skin warm/dry/pink. Patient states feeling better. Patient states symptoms have improved. Vital Signs: 01:04 BP 143 / 83; Pulse 46; Resp 16; Temp 98.4; Pulse Ox 100% ; Weight 126.1 kg; Height 5 vc1 ft. 7 in. ; Pain 10/10; 02:10 BP 154 / 95; Pulse 52; Resp 17; Pulse Ox 100% ; jj7 03:10 BP 126 / 69; Pulse 50; Resp 16; Pulse Ox 97% ; jj7 03:59 BP 120 / 63; Pulse 50; Resp 18 S; Pulse Ox 97% on R/A; jw7 01:04 Body Mass Index 43.54 (126.10 kg, 170.18 cm) vc1 01:04 Pain Scale: Adult vc1 Cely Coma Score: 05:59 Eye Response: spontaneous(4). Motor Response: obeys commands(6). Verbal Response: sp4 oriented(5). Total: 15. NIH Stroke Scale Scores: 05:59 NIHSS Score: 0 sp4 ED Course: 00:54 Patient arrived in ED. gm2 01:00 Eric Nieves MD is Attending Physician. sp4 01:10 Arm band placed on right wrist. vc1 01:26 Patient has correct armband on for positive identification. Bed in low position. Call jj7 light in reach. Adult w/ patient. Provided Education on: USE OF CALL BEAL. Client placed on continuous cardiac and pulse oximetry monitoring. NIBP monitoring applied. manager monitoring on. 01:26 Inserted saline lock: 22 gauge in right antecubital area, using aseptic technique. jj7 Blood collected. 01:33 CT Head Brain wo Cont In Process Unspecified. EDMS 01:57 Triage completed. vc1 04:00 No provider procedures requiring assistance completed. IV discontinued, intact, jw7 bleeding controlled, No redness/swelling at site. Pressure dressing applied. Administered Medications: 02:04 Drug: metoCLOPramide IVP 10 mg IVP once; over 1 to 2 minutes Route: IVP; Site: right j7 antecubital; 04:01 Follow up: Response: No adverse reaction; Marked relief of symptoms jw7 02:05 Drug: NS 0.9% IV 1000 ml IV at 1 bolus Per protocol; 1000 mL bolus Route: IV; Rate: 1 jj7 bolus; Site: right antecubital; 04:01 Follow up: Response: No adverse reaction; IV Status: Completed infusion; IV Intake: jw7 1000ml 02:05 Drug: diphenhydrAMINE IVP 50 mg IVP once Route: IVP; Site: right antecubital; jj7 04:01 Follow up: Response: No adverse reaction; Marked relief of symptoms jw7 02:05 Drug: Ketorolac IVP 30 mg IVP once Route: IVP; Site: right antecubital; jj7 04:01 Follow up: Response: No adverse reaction; Marked relief of symptoms; Pain is decreased jw7 Medication: 01:26 VIS not applicable for this client. jj7 Intake: 04:01 IV: 1000ml; Total: 1000ml. jw7 Outcome: 03:44 Discharge ordered by MD. vale 04:00 Discharged to home ambulatory, jw7 04:00 Condition: stable 04:00 Discharge instructions given to patient, Instructed on discharge instructions, follow up and referral plans. medication usage, Demonstrated understanding of instructions, follow-up care, medications, Prescriptions given X 1, 04:02 Patient left the ED. jw7 NIH Stroke Scale - NIH Stroke Score Date: 04/19/2024 Time: 05:59 Total Score = 0 10. Dysarthria (speech clarity - read or repeat words) - 0(Normal) 11. Extinction and Inattention (visual/tactile/auditory/spatial/personal) - 0(No abnormality) 1a. Level of Consciousness (LOC) - 0(Alert) 1b. Level of Consciousness (LOC) (Month \\T\\ Age) - 0(Both) 1c. LOC Commands (Open \\T\\ Closes Eyes/Supervisor Pyrotechnic Loading) - 0(Both) 2. Best Gaze (Lateral Gaze Paresis) - 0(Normal) 3. Visual Field Loss - 0(No visual loss) 4. Facial Palsy - 0(Normal) 5a. Left Arm: Motor (10-second hold) - 0(No drift) 5b. Right Arm: Motor (10-second hold) - 0(No drift) 6a. Left Leg: Motor (5-second hold - always test supine) - 0(No drift) 6b. Right Leg: Motor (5-second hold - always test supine) - 0(No drift) 7. Limb Ataxia (finger/nose \\T\\ heel/pearson - test with eyes open) - 0(Absent) 8. Sensory Loss (pinprick arms/legs/face) - 0(Normal) 9. Best Language: Aphasia (description/naming/reading) - 0(No aphasia) Initials: sp4 Signatures: Dispatcher [employer] EDMS Quin Barker RN RN vc1 Terri Lozano RN RN jw7 Pasquale Fish RN RN jj7 Eric Nieves MD MD sp4 Madhavi De La Torre gm2
[2024-04-19 04:19] VITALS: BP 120/63; TEMP 98.4; O2SAT 97
--- NOTE | 2024-04-19 12:18 | RAD REPORT ---
EXAM DESCRIPTION: CT - Head Brain Wo Cont - 04/19/2024 6:10 am CLINICAL HISTORY: The patient is 28 years old and is Male; new onset headache TECHNIQUE: Axial computed tomography images of the head/brain without intravenous contrast. Sagitt al and coronal reformatted images were created and reviewed. This CT exam was performed using one o r more of the following dose reduction techniques: automated exposure control, adjustment of the mA and/or kV according to patient size, and/or use of iterative reconstruction technique. COMPARISON: No relevant prior studies available. FINDINGS: Brain: Unremarkable. No hemorrhage. No significant white matter disease. No edema. Ventricles: Unremarkable. No ventriculomegaly. Bones/joints: Unremarkable. No acute fracture. Soft tissues: Unremarkable. Sinuses: Unremarkable as visualized. Mastoid air cells: Unremarkable as visualized. No mastoid effusion. IMPRESSION: No acute intracranial abnormality. Electronically signed by: Joey Lockwood MD 04/19/2024 02:59 AM CDT RP 8 Due to temporary technical issues with the PACS/Fluency reporting system, reports are being signed by the in house radiologist without review as a courtesy to ensure prompt reporting. The interpreting r adiologist is fully responsible for the content of the report.
== END 2024-04-19 04:02 | disposition home or self-care (01) ==
LOC: ER 00:49
DX: G43.009 Migraine without aura, not intractable, without status migrainosus (principal); I10 Essential (primary) hypertension
CPT/HCPCS: 96361; 82947; 70450; 96375; 96374; 99285; J2765; J1200; J7030